=== PATIENT | female | born 1965 | race Caucasian/White ===

== ENCOUNTER 2016-06-19 08:54 | Emergency (ER) | payer OTHER ==
[2016-06-19] MEDS ORDERED: SODIUM CHLORIDE 0.9% 1,000 ML IV ONE (09:09)
[2016-06-19] MEDS ORDERED: ONDANSETRON 4 MG/2 ML VIAL IVP STA (09:10)
--- NOTE | 2016-06-19 09:21 | ED ---
General Adult HPI - General Chief complaint: Fever Stated complaint: Fever/cough Time Seen by Provider: 06/19/16 09:03 Source: patient, RN notes reviewed Mode of arrival: ambulatory Limitations: no limitations - History of Present Illness Initial comments: Patient is a 51-year-old female presents to the emergency room for evaluation of not feeling well. Patient states over the past weekend she's been having on and off fevers, slight sinus congestion, cough. Patient states over the past weekend she has been having all over body aches and has had stomach queasiness and has not had an appetite. Patient states she hasn't eaten or drink anything in the past few days and feels like she is dehydrated. Patient denies any current fevers. Patient denies headache or dizziness. Patient denies throat pain or ear pain. Patient denies abdominal pain. Patient states she has a history of colon cancer and had a colostomy bag placed in 2011. Patient states she's noticed decreased output in her colostomy bag due to not eating. Patient denies chest pain or shortness of breath. Patient states she did not receive her influenza vaccine this year. - Related Data Home Medications Medication Instructions Recorded Confirmed Empagliflozin [Jardiance] 25 mg PO DAILY 06/19/16 06/19/16 Insulin Aspart [NovoLOG] See Protocol SQ TID 06/19/16 06/19/16 Insulin Glargine [Lantus] 50 unit SQ HS 06/19/16 06/19/16 Simvastatin [Zocor] 10 mg PO HS 06/19/16 06/19/16 Previous Rx's Medication Instructions Recorded Ondansetron Odt [Zofran Odt] 4 mg PO Q8HR PRN #12 tab 06/19/16 Allergies Allergy/AdvReac Type Severity Reaction Status Date / Time adhesive tape Allergy Rash/Hives Verified 06/19/16 09:49 amoxicillin Allergy Rash/Hives Verified 06/19/16 09:49 Review of Systems ROS Statement: Those systems with pertinent positive or pertinent negative responses have been documented in the HPI. ROS Other: All systems not noted in ROS Statement are negative. Past Medical History Past Medical History: Cancer, Diabetes Mellitus Additional Past Medical History / Comment(s): colorectal CA History of Any Multi-Drug Resistant Organisms: MRSA Date of last positivie culture/infection: 2011 MDRO Source:: abdominal wound Past Surgical History: Bowel Resection Additional Past Surgical History / Comment(s): colostomy Past Psychological History: No Psychological Hx Reported Smoking Status: Never smoker Past Alcohol Use History: None Reported Past Drug Use History: None Reported General Exam - General Exam Comments Initial Comments: Sitting in exam room, no acute distress. Limitations: no limitations General appearance: alert, in no apparent distress Head exam: Present: atraumatic, normocephalic, normal inspection Eye exam: Present: normal appearance ENT exam: Present: normal exam Neck exam: Present: normal inspection Respiratory exam: Present: normal lung sounds bilaterally. Absent: respiratory distress Cardiovascular Exam: Present: regular rate, normal rhythm, normal heart sounds GI/Abdominal exam: Present: soft, other (Colostomy bag in place). Absent: distended, tenderness, guarding, rebound, rigid Extremities exam: Present: normal inspection Back exam: Present: normal inspection Neurological exam: Present: alert, oriented X3, CN II-XII intact, normal gait Psychiatric exam: Present: normal affect, normal mood Skin exam: Present: warm, dry, intact, normal color. Absent: rash Course Vital Signs 06/19/16 08:57 Temperature 97.9 F Pulse Rate 125 H Respiratory 16 Rate Blood Pressure 149/71 O2 Sat by Pulse 95 Oximetry Medical Decision Making - Medical Decision Making Patient is a 51-year-old female presents to the emergency room for evaluation upper respiratory symptoms and general malaise. CBC within normal limits. Labs show no acute findings. Patient states she is feeling better after Zofran and fluids given. Rapid influenza negative. Patient declined any further workup including chest x-ray. Patient states she is feeling better and would like to be discharged home. Patient states she'll return for any worsening symptoms. Patient states she understands everything that was discussed with her. Case discussed with Dr. Pro. - Lab Data Result diagrams: 06/19/16 09:30 06/19/16 09:30 Lab Results 06/19/16 06/19/16 06/19/16 Range/Units 09:30 09:30 09:30 WBC 5.8 (3.8-10.6) k/uL RBC 5.21 (3.80-5.40) m/uL Hgb 15.3 (11.4-16.0) gm/dL Hct 45.2 (34.0-46.0) % MCV 86.8 (80.0-100.0) fL MCH 29.4 (25.0-35.0) pg MCHC 33.9 (31.0-37.0) g/dL RDW 14.4 (11.5-15.5) % Plt Count 153 (150-450) k/uL Neutrophils % 85 % Lymphocytes % 7 % Monocytes % 5 % Eosinophils % 1 % Basophils % 1 % Neutrophils # 4.9 (1.3-7.7) k/uL Lymphocytes # 0.4 L (1.0-4.8) k/uL Monocytes # 0.3 (0-1.0) k/uL Eosinophils # 0.1 (0-0.7) k/uL Basophils # 0.0 (0-0.2) k/uL Poikilocytosis Slight Sodium 141 (137-145) mmol/L Potassium 4.2 (3.5-5.1) mmol/L Chloride 103 (98-107) mmol/L Carbon Dioxide 23 (22-30) mmol/L Anion Gap 15 mmol/L BUN 13 (7-17) mg/dL Creatinine 0.64 (0.52-1.04) mg/dL Est GFR (MDRD) Af Amer >60 (>60 ml/min/1.73 sqM) Est GFR (MDRD) Non-Af >60 (>60 ml/min/1.73 sqM) Glucose 200 H (74-99) mg/dL Calcium 9.2 (8.4-10.2) mg/dL Total Bilirubin 1.3 (0.2-1.3) mg/dL AST 23 (14-36) U/L ALT 29 (9-52) U/L Alkaline Phosphatase 60 (38-126) U/L Total Protein 7.1 (6.3-8.2) g/dL Albumin 4.3 (3.5-5.0) g/dL Influenza Type A RNA Not Detected (Not Detectd) Influenza Type B (PCR) Not Detected (Not Detectd) Disposition Clinical Impression: Upper respiratory infection Disposition: HOME SELF-CARE Condition: Good Instructions: Upper Respiratory Infection (ED) Additional Instructions: Drink plenty of fluids. Please follow up with primary care provider in 1-2 days. If any new symptom arises or symptoms worsen, return to ER as soon as possible. Prescriptions: Ondansetron Odt [Zofran Odt] 4 mg PO Q8HR PRN #12 tab PRN Reason: Nausea Referrals: John Wells MD [Primary Care Provider] - 1-2 days Time of Disposition: 10:57
[2016-06-19 09:59] LABS: Basophils % (A) 1 %; CH 30.2; Eosinophils # (A) 0.1 k/uL (0-0.7); Eosinophils % (A) 1 %; HCT 45.2 % (34.0-46.0); HDW 3.52; HGB 15.3 gm/dL (11.4-16.0); Luc % (Auto) 2; Lymphocytes # (A) 0.4 k/uL (1.0-4.8); Lymphocytes % (A) 7 %; MCH 29.4 pg (25.0-35.0); MCHC 33.9 g/dL (31.0-37.0); MCV 86.8 fL (80.0-100.0); Mean Platelet Volume 6.6; Monocytes # (A) 0.3 k/uL (0-1.0); Monocytes % (A) 5 %; Neutrophils # (A) 4.9 k/uL (1.3-7.7); Neutrophils % (A) 85 %; Poikilocytosis Slight; RBC 5.21 m/uL (3.80-5.40); RDW 14.4 % (11.5-15.5); WBC 5.8 k/uL (3.8-10.6); WBC (Perox) 5.69
[2016-06-19 10:13] LABS: ALT 29 U/L (9-52); AST 23 U/L (14-36); Alkaline Phosphatase 60 U/L (38-126); Anion Gap 15 mmol/L; Blood Urea Nitrogen 13 mg/dL (7-17); Calcium 9.2 mg/dL (8.4-10.2); Carbon Dioxide 23 mmol/L (22-30); Chloride 103 mmol/L (98-107); Glucose 200 mg/dL (74-99); Non-African American GFR(MDRD) >60 (>60 ml/min/1.73 sqM); Potassium 4.2 mmol/L (3.5-5.1); Sodium 141 mmol/L (137-145); Total Bilirubin 1.3 mg/dL (0.2-1.3); Total Protein 7.1 g/dL (6.3-8.2)
--- NOTE | 2016-06-19 11:20 | XR ---
EXAMINATION TYPE: XR chest 2V DATE OF EXAM: 06/19/2016 11:17 AM HISTORY: Pain. REFERENCE: NONE. FINDINGS: There is a questionable small infiltrate in the right middle lobe. The lungs are otherwise clear. Pleural spaces are clear. Heart size is normal. IMPRESSION: QUESTIONABLE EARLY INFILTRATE, RIGHT MIDDLE LOBE.
[2016-06-19] MEDS ORDERED: IPRATROPIUM-ALBUTEROL 3 ML NEB INHALATION STA (12:14)
[2016-06-19 12:34] VITALS: RESP 18
--- NOTE | 2016-06-19 12:35 | ED ---
Medical Decision Making - Medical Decision Making Patient is a 51-year-old female presents emergency room for reevaluation upper respiratory symptoms. Patient O2 sat low at discharge. Patient decided to go through chest x-ray and d-dimer was ordered. Chest x-ray show signs of possible right pneumonia. D-dimer negative. Patient given a DuoNeb treatment and states that she is feeling better. O2 sat 99%. Patient given 1 g of Rocephin while she was here. Will discharge patient with antibiotics to treat for pneumonia and advised to follow-up with her primary care provider. Patient states she understands everything that was discussed with her. Return parameters discussed. Case discussed with Dr. Pro. - Lab Data Result diagrams: 06/19/16 09:30 06/19/16 09:30 Lab Results 06/19/16 06/19/16 06/19/16 Range/Units 09:30 09:30 09:30 WBC 5.8 (3.8-10.6) k/uL RBC 5.21 (3.80-5.40) m/uL Hgb 15.3 (11.4-16.0) gm/dL Hct 45.2 (34.0-46.0) % MCV 86.8 (80.0-100.0) fL MCH 29.4 (25.0-35.0) pg MCHC 33.9 (31.0-37.0) g/dL RDW 14.4 (11.5-15.5) % Plt Count 153 (150-450) k/uL Neutrophils % 85 % Lymphocytes % 7 % Monocytes % 5 % Eosinophils % 1 % Basophils % 1 % Neutrophils # 4.9 (1.3-7.7) k/uL Lymphocytes # 0.4 L (1.0-4.8) k/uL Monocytes # 0.3 (0-1.0) k/uL Eosinophils # 0.1 (0-0.7) k/uL Basophils # 0.0 (0-0.2) k/uL Poikilocytosis Slight D-Dimer (<0.60) mg/L FEU Sodium 141 (137-145) mmol/L Potassium 4.2 (3.5-5.1) mmol/L Chloride 103 (98-107) mmol/L Carbon Dioxide 23 (22-30) mmol/L Anion Gap 15 mmol/L BUN 13 (7-17) mg/dL Creatinine 0.64 (0.52-1.04) mg/dL Est GFR (MDRD) Af Amer >60 (>60 ml/min/1.73 sqM) Est GFR (MDRD) Non-Af >60 (>60 ml/min/1.73 sqM) Glucose 200 H (74-99) mg/dL Calcium 9.2 (8.4-10.2) mg/dL Total Bilirubin 1.3 (0.2-1.3) mg/dL AST 23 (14-36) U/L ALT 29 (9-52) U/L Alkaline Phosphatase 60 (38-126) U/L Total Protein 7.1 (6.3-8.2) g/dL Albumin 4.3 (3.5-5.0) g/dL Influenza Type A RNA Not Detected (Not Detectd) Influenza Type B (PCR) Not Detected (Not Detectd) 06/19/16 Range/Units 11:30 WBC (3.8-10.6) k/uL RBC (3.80-5.40) m/uL Hgb (11.4-16.0) gm/dL Hct (34.0-46.0) % MCV (80.0-100.0) fL MCH (25.0-35.0) pg MCHC (31.0-37.0) g/dL RDW (11.5-15.5) % Plt Count (150-450) k/uL Neutrophils % % Lymphocytes % % Monocytes % % Eosinophils % % Basophils % % Neutrophils # (1.3-7.7) k/uL Lymphocytes # (1.0-4.8) k/uL Monocytes # (0-1.0) k/uL Eosinophils # (0-0.7) k/uL Basophils # (0-0.2) k/uL Poikilocytosis D-Dimer 0.46 (<0.60) mg/L FEU Sodium (137-145) mmol/L Potassium (3.5-5.1) mmol/L Chloride (98-107) mmol/L Carbon Dioxide (22-30) mmol/L Anion Gap mmol/L BUN (7-17) mg/dL Creatinine (0.52-1.04) mg/dL Est GFR (MDRD) Af Amer (>60 ml/min/1.73 sqM) Est GFR (MDRD) Non-Af (>60 ml/min/1.73 sqM) Glucose (74-99) mg/dL Calcium (8.4-10.2) mg/dL Total Bilirubin (0.2-1.3) mg/dL AST (14-36) U/L ALT (9-52) U/L Alkaline Phosphatase (38-126) U/L Total Protein (6.3-8.2) g/dL Albumin (3.5-5.0) g/dL Influenza Type A RNA (Not Detectd) Influenza Type B (PCR) (Not Detectd) - Radiology Data Radiology results: report reviewed, image reviewed Disposition Clinical Impression: Pneumonia Disposition: HOME SELF-CARE Condition: Good Instructions: Pneumonia (ED) Additional Instructions: Drink plenty of fluids. Please follow up with primary care provider in 1-2 days. If any new symptom arises or symptoms worsen, return to ER as soon as possible. Prescriptions: Albuterol Inhaler [Ventolin Hfa Inhaler] 1 - 2 puff INHALATION Q6HR PRN #1 inhaler PRN Reason: Cough Ondansetron Odt [Zofran Odt] 4 mg PO Q8HR PRN #12 tab PRN Reason: Nausea Levofloxacin [Levaquin] 500 mg PO DAILY 7 Days predniSONE 40 mg PO DIRECTED 3 Days Referrals: John Wells MD [Primary Care Provider] - 1-2 days Time of Disposition: 13:28
[2016-06-19 13:52] VITALS: BP 137/67; PULSE 113; TEMP 99.2
== END 2016-06-19 13:50 | disposition home or self-care (01) ==
LOC: EC 08:54
DX: J18.9 Pneumonia, unspecified organism (principal); J06.9 Acute upper respiratory infection, unspecified; E11.9 Type 2 diabetes mellitus without complications; Z91.048 Other nonmedicinal substance allergy status; Z79.4 Long term (current) use of insulin; Z85.038 Personal history of other malignant neoplasm of large intestine; Z85.048 Personal history of other malignant neoplasm of rectum, rectosigmoid junction, and anus; Z88.0 Allergy status to penicillin; Z79.899 Other long term (current) drug therapy
CPT/HCPCS: 99284 ×2; 96365; 96375; 96361 ×3; 36415; 94640; 85379; 80053; 85025; 87502; 71020; J2405; J0696; 99283

== ENCOUNTER → 2017-03-20 | Outpatient (CLI) | payer OTHER ==
--- NOTE | 2017-03-22 11:27 | MM ---
Reason for exam: screening (asymptomatic). Last mammogram was performed 1 year and 1 month ago. History: Patient is postmenopausal, has history of colon cancer at age 47, history of other cancer, and is nulliparous. Physical Findings: A clinical breast exam by your physician is recommended on an annual basis and results should be correlated with mammographic findings. MG Screening Mammo w CAD Bilateral CC and MLO view(s) were taken. Prior study comparison: February 28, 2016, bilateral MG screening mammo w CAD. February 25, 2015, bilateral MG screening mammo w CAD. The breast tissue is almost entirely fat. No significant changes when compared with prior studies. ASSESSMENT: Negative, BI-RAD 1 RECOMMENDATION: Routine screening mammogram of both breasts in 1 year.
== END | disposition home or self-care (01) ==
LOC: RADMAMWWP 06:47
PROVIDERS: ATTEND Obstetrics & Gynecology
DX: Z12.31 Encounter for screening mammogram for malignant neoplasm of breast (principal)

== ENCOUNTER 2017-08-29 21:38 | Inpatient (IN) | payer OTHER ==
[2017-08-29] MEDS ORDERED: ACETAMINOPHEN TAB 500 MG TAB PO STA (22:14)
[2017-08-29] MEDS ORDERED: SODIUM CHLORIDE 0.9% 2,000 ML IV ONE (22:19)
[2017-08-29] MEDS ORDERED: ONDANSETRON 4 MG/2 ML VIAL IVP STA (22:20)
[2017-08-29 22:26] LABS: Glucose,Whole Blood 157 mg/dL (75-99)
[2017-08-29 22:29] LABS: Basophils % (A) 0 %; Eosinophils # (A) 0.2 k/uL (0-0.7); Eosinophils % (A) 2 %; HCT 51.8 % (34.0-46.0); HGB 17.6 gm/dL (11.4-16.0); Lymphocytes % (A) 7 %; MCH 29.9 pg (25.0-35.0); MCHC 33.9 g/dL (31.0-37.0); MCV 88.2 fL (80.0-100.0); Mean Platelet Volume 6.5; Monocytes # (A) 0.4 k/uL (0-1.0); Monocytes % (A) 3 %; Neutrophils # (A) 11.2 k/uL (1.3-7.7); Neutrophils % (A) 87 %; Platelet Count 286 k/uL (150-450); Poikilocytosis Slight; RBC 5.87 m/uL (3.80-5.40); RDW 14.7 % (11.5-15.5); WBC 12.9 k/uL (3.8-10.6)
[2017-08-29] MEDS: SODIUM CHLORIDE 0.9% 1,000 ML IV SCH (22:37)
[2017-08-29 22:43] LABS: ALT 37 U/L (9-52); AST 25 U/L (14-36); Albumin 5.4 g/dL (3.5-5.0); Alkaline Phosphatase 66 U/L (38-126); Amylase 52 U/L (30-110); Anion Gap 30 mmol/L; Blood Urea Nitrogen 15 mg/dL (7-17); Calcium 10.5 mg/dL (8.4-10.2); Chloride 105 mmol/L (98-107); Glucose 165 mg/dL (74-99); Lipase 191 U/L (23-300); Potassium 4.5 mmol/L (3.5-5.1); Sodium 141 mmol/L (137-145); Total Bilirubin 0.7 mg/dL (0.2-1.3); Total Protein 8.1 g/dL (6.3-8.2)
[2017-08-29 22:50] LABS: Carbon Dioxide 6 mmol/L (22-30)
--- NOTE | 2017-08-29 22:54 | XR ---
EXAMINATION TYPE: XR chest 2V DATE OF EXAM: 08/29/2017 COMPARISON: 06/19/2016 HISTORY: Headache TECHNIQUE: Frontal and lateral views of the chest are obtained. FINDINGS: Heart and mediastinum are normal. Lungs are clear. Diaphragm is normal. Bony thorax is int act. There are chest leads. IMPRESSION: Normal chest. There is clearing of some infiltrate in the right lower lobe compared to o ld exam.
--- NOTE | 2017-08-29 22:55 | XR ---
EXAMINATION TYPE: XR KUB DATE OF EXAM: 08/29/2017 COMPARISON: NONE HISTORY: Nausea. Pain. TECHNIQUE: 2 views FINDINGS: There is no sign of intestinal obstruction or pneumoperitoneum. Fecal pattern is normal. Ba riatric surgery catheter is noted. There is no evidence of a mass. There is some small calcifications over the left kidney. IMPRESSION: Nonacute abdomen. Tiny calcifications over the left upper quadrant of uncertain significa nce.
[2017-08-29 22:59] LABS: VBG PH 7.13 (7.31-7.41)
--- NOTE | 2017-08-29 23:20 | ED ---
Arrhythmia/Palpitations HPI - General Chief Complaint: Arrhythmia/Palpitations Stated Complaint: Palpatations Time Seen by Provider: 08/29/17 22:12 Source: patient Mode of arrival: ambulatory Limitations: no limitations - History of Present Illness Initial Comments: 20 years O female comes in with a palpitation, she is a diabetic, she dropped her sugar too low that she stopped taking her insulin but she hasn't taken her insulin for a few days and she is very tired as well as headache she is abdominal pain she is nauseous she threw up twice and she feels very very thirsty. She denies any neck stiffness no chest pain as such no pleuritic chest pain abdomen has diffuse tenderness, no signs of any TIA or CVA - Related Data Home Medications Medication Instructions Recorded Confirmed Insulin Aspart [NovoLOG] See Protocol SQ TID 06/19/16 08/29/17 Simvastatin [Zocor] 10 mg PO HS 06/19/16 08/29/17 Albuterol Inhaler [Ventolin Hfa 1 - 2 puff INHALATION RT-Q6H PRN 08/29/17 Inhaler] Canagliflozin [Invokana] 100 mg PO DAILY 08/29/17 08/29/17 Insulin Detemir [Levemir] 50 unit SQ HS 08/29/17 08/29/17 Lisinopril [Zestril] 2.5 mg PO DAILY 08/29/17 08/29/17 Allergies Allergy/AdvReac Type Severity Reaction Status Date / Time adhesive tape Allergy Rash/Hives Verified 08/29/17 22:23 amoxicillin Allergy Rash/Hives Verified 08/29/17 22:23 Review of Systems ROS Statement: Those systems with pertinent positive or pertinent negative responses have been documented in the HPI. ROS Other: All systems not noted in ROS Statement are negative. Past Medical History Past Medical History: Cancer, Diabetes Mellitus Additional Past Medical History / Comment(s): colorectal CA History of Any Multi-Drug Resistant Organisms: MRSA Date of last positivie culture/infection: 2011 MDRO Source:: abdominal wound Past Surgical History: Bowel Resection Additional Past Surgical History / Comment(s): colostomy Past Psychological History: No Psychological Hx Reported Smoking Status: Never smoker Past Alcohol Use History: None Reported Past Drug Use History: None Reported General Exam Limitations: no limitations Course Vital Signs 08/29/17 08/30/17 21:54 01:10 Temperature 97.9 F Pulse Rate 110 H 106 H Respiratory 20 18 Rate Blood Pressure 134/84 137/64 O2 Sat by Pulse 95 98 Oximetry EKG Findings - EKG Comments: EKG Findings:: EKG is sinus tachycardia ventricular rate is 1 of 4 TX interval is 158 QRS QRS duration is 88 QT/QTc is 364/478 and noticed T-wave inversion in lead [address] elevation or ST depression noticed Medical Decision Making - Lab Data Result diagrams: 08/29/17 22:15 08/29/17 22:15 Lab Results 08/29/17 08/29/17 08/29/17 Range/Units 22:15 22:15 22:15 WBC 12.9 H (3.8-10.6) k/uL RBC 5.87 H (3.80-5.40) m/uL Hgb 17.6 H (11.4-16.0) gm/dL Hct 51.8 H (34.0-46.0) % MCV 88.2 (80.0-100.0) fL MCH 29.9 (25.0-35.0) pg MCHC 33.9 (31.0-37.0) g/dL RDW 14.7 (11.5-15.5) % Plt Count 286 (150-450) k/uL Neutrophils % 87 % Lymphocytes % 7 % Monocytes % 3 % Eosinophils % 2 % Basophils % 0 % Neutrophils # 11.2 H (1.3-7.7) k/uL Lymphocytes # 1.0 (1.0-4.8) k/uL Monocytes # 0.4 (0-1.0) k/uL Eosinophils # 0.2 (0-0.7) k/uL Basophils # 0.0 (0-0.2) k/uL Poikilocytosis Slight VBG pH (7.31-7.41) VBG pCO2 (37-51) mmHg VBG HCO3 (24-28) mmol/L Sodium 141 (137-145) mmol/L Potassium 4.5 (3.5-5.1) mmol/L Chloride 105 (98-107) mmol/L Carbon Dioxide 6 L* (22-30) mmol/L Anion Gap 30 mmol/L BUN 15 (7-17) mg/dL Creatinine 0.80 (0.52-1.04) mg/dL Est GFR (CKD-EPI)AfAm >90 (>60 ml/min/1.73 sqM) Est GFR (CKD-EPI)NonAf 85 (>60 ml/min/1.73 sqM) Glucose 165 H (74-99) mg/dL POC Glucose (mg/dL) (75-99) mg/dL POC Glu General Manager [employer] ID Plasma Lactic Acid Mamadou (0.7-2.0) mmol/L Calcium 10.5 H (8.4-10.2) mg/dL Total Bilirubin 0.7 (0.2-1.3) mg/dL AST 25 (14-36) U/L ALT 37 (9-52) U/L Alkaline Phosphatase 66 (38-126) U/L Troponin I <0.012 (0.000-0.034) ng/mL Total Protein 8.1 (6.3-8.2) g/dL Albumin 5.4 H (3.5-5.0) g/dL Amylase 52 (30-110) U/L Lipase 191 (23-300) U/L Urine Color Urine Appearance (Clear) Urine pH (5.0-8.0) Ur Specific [place] (1.001-1.035) Urine Protein (Negative) Urine Glucose (UA) (Negative) Urine Ketones (Negative) Urine Blood (Negative) Urine Nitrite (Negative) Urine Bilirubin (Negative) Urine Urobilinogen (<2.0) mg/dL Ur Leukocyte Esterase (Negative) Urine RBC (0-5) /hpf Urine WBC (0-5) /hpf Ur Squamous Epith Cells (0-4) /hpf Urine Mucus (None) /hpf Urine Opiates Screen (NotDetected) Ur Oxycodone Screen (NotDetected) Urine Methadone Screen (NotDetected) Ur Propoxyphene Screen (NotDetected) Ur Barbiturates Screen (NotDetected) U Tricyclic Antidepress (NotDetected) Ur Phencyclidine Scrn (NotDetected) Ur Amphetamines Screen (NotDetected) U Methamphetamines Scrn (NotDetected) U Benzodiazepines Scrn (NotDetected) Urine Cocaine Screen (NotDetected) U Marijuana (THC) Screen (NotDetected) 08/29/17 08/29/17 08/29/17 Range/Units 22:22 22:35 22:35 WBC (3.8-10.6) k/uL RBC (3.80-5.40) m/uL Hgb (11.4-16.0) gm/dL Hct (34.0-46.0) % MCV (80.0-100.0) fL MCH (25.0-35.0) pg MCHC (31.0-37.0) g/dL RDW (11.5-15.5) % Plt Count (150-450) k/uL Neutrophils % % Lymphocytes % % Monocytes % % Eosinophils % % Basophils % % Neutrophils # (1.3-7.7) k/uL Lymphocytes # (1.0-4.8) k/uL Monocytes # (0-1.0) k/uL Eosinophils # (0-0.7) k/uL Basophils # (0-0.2) k/uL Poikilocytosis VBG pH 7.13 L* (7.31-7.41) VBG pCO2 18 L* (37-51) mmHg VBG HCO3 6 L* (24-28) mmol/L Sodium (137-145) mmol/L Potassium (3.5-5.1) mmol/L Chloride (98-107) mmol/L Carbon Dioxide (22-30) mmol/L Anion Gap mmol/L BUN (7-17) mg/dL Creatinine (0.52-1.04) mg/dL Est GFR (CKD-EPI)AfAm (>60 ml/min/1.73 sqM) Est GFR (CKD-EPI)NonAf (>60 ml/min/1.73 sqM) Glucose (74-99) mg/dL POC Glucose (mg/dL) 157 H (75-99) mg/dL POC Glu [facility] [employer] [facility] Plasma Lactic Acid Mamadou 0.9 (0.7-2.0) mmol/L Calcium (8.4-10.2) mg/dL Total Bilirubin (0.2-1.3) mg/dL AST (14-36) U/L ALT (9-52) U/L Alkaline Phosphatase (38-126) U/L Troponin I (0.000-0.034) ng/mL Total Protein (6.3-8.2) g/dL Albumin (3.5-5.0) g/dL Amylase (30-110) U/L Lipase (23-300) U/L Urine Color Urine Appearance (Clear) Urine pH (5.0-8.0) Ur Specific [place] (1.001-1.035) Urine Protein (Negative) Urine Glucose (UA) (Negative) Urine Ketones (Negative) Urine Blood (Negative) Urine Nitrite (Negative) Urine Bilirubin (Negative) Urine Urobilinogen (<2.0) mg/dL Ur Leukocyte Esterase (Negative) Urine RBC (0-5) /hpf Urine WBC (0-5) /hpf Ur Squamous Epith Cells (0-4) /hpf Urine Mucus (None) /hpf Urine Opiates Screen (NotDetected) Ur Oxycodone Screen (NotDetected) Urine Methadone Screen (NotDetected) Ur Propoxyphene Screen (NotDetected) Ur Barbiturates Screen (NotDetected) U Tricyclic Antidepress (NotDetected) Ur Phencyclidine Scrn (NotDetected) Ur Amphetamines Screen (NotDetected) U Methamphetamines Scrn (NotDetected) U Benzodiazepines Scrn (NotDetected) Urine Cocaine Screen (NotDetected) U Marijuana (THC) Screen (NotDetected) 08/29/17 08/29/17 08/29/17 Range/Units 23:23 23:23 23:42 WBC (3.8-10.6) k/uL RBC (3.80-5.40) m/uL Hgb (11.4-16.0) gm/dL Hct (34.0-46.0) % MCV (80.0-100.0) fL MCH (25.0-35.0) pg MCHC (31.0-37.0) g/dL RDW (11.5-15.5) % Plt Count (150-450) k/uL Neutrophils % % Lymphocytes % % Monocytes % % Eosinophils % % Basophils % % Neutrophils # (1.3-7.7) k/uL Lymphocytes # (1.0-4.8) k/uL Monocytes # (0-1.0) k/uL Eosinophils # (0-0.7) k/uL Basophils # (0-0.2) k/uL Poikilocytosis VBG pH (7.31-7.41) VBG pCO2 (37-51) mmHg VBG HCO3 (24-28) mmol/L Sodium (137-145) mmol/L Potassium (3.5-5.1) mmol/L Chloride (98-107) mmol/L Carbon Dioxide (22-30) mmol/L Anion Gap mmol/L BUN (7-17) mg/dL Creatinine (0.52-1.04) mg/dL Est GFR (CKD-EPI)AfAm (>60 ml/min/1.73 sqM) Est GFR (CKD-EPI)NonAf (>60 ml/min/1.73 sqM) Glucose (74-99) mg/dL POC Glucose (mg/dL) (75-99) mg/dL POC Glu General Manager [employer] ID Plasma Lactic Acid Mamadou 0.9 (0.7-2.0) mmol/L Calcium (8.4-10.2) mg/dL Total Bilirubin (0.2-1.3) mg/dL AST (14-36) U/L ALT (9-52) U/L Alkaline Phosphatase (38-126) U/L Troponin I (0.000-0.034) ng/mL Total Protein (6.3-8.2) g/dL Albumin (3.5-5.0) g/dL Amylase (30-110) U/L Lipase (23-300) U/L Urine Color Light Yellow Urine Appearance Clear (Clear) Urine pH 5.0 (5.0-8.0) Ur Specific [place] 1.015 (1.001-1.035) Urine Protein 1+ H (Negative) Urine Glucose (UA) 4+ H (Negative) Urine Ketones 4+ H (Negative) Urine Blood Trace H (Negative) Urine Nitrite Negative (Negative) Urine Bilirubin Negative (Negative) Urine Urobilinogen <2.0 (<2.0) mg/dL Ur Leukocyte Esterase Negative (Negative) Urine RBC <1 (0-5) /hpf Urine WBC <1 (0-5) /hpf Ur Squamous Epith Cells <1 (0-4) /hpf Urine Mucus Rare H (None) /hpf Urine Opiates Screen Not Detected (NotDetected) Ur Oxycodone Screen Not Detected (NotDetected) Urine Methadone Screen Not Detected (NotDetected) Ur Propoxyphene Screen Not Detected (NotDetected) Ur Barbiturates Screen Not Detected (NotDetected) U Tricyclic Antidepress Not Detected (NotDetected) Ur Phencyclidine Scrn Not Detected (NotDetected) Ur Amphetamines Screen Not Detected (NotDetected) U Methamphetamines Scrn Not Detected (NotDetected) U Benzodiazepines Scrn Not Detected (NotDetected) Urine Cocaine Screen Not Detected (NotDetected) U Marijuana (THC) Screen Not Detected (NotDetected) 08/29/17 Range/Units 23:42 WBC (3.8-10.6) k/uL RBC (3.80-5.40) m/uL Hgb (11.4-16.0) gm/dL Hct (34.0-46.0) % MCV (80.0-100.0) fL MCH (25.0-35.0) pg MCHC (31.0-37.0) g/dL RDW (11.5-15.5) % Plt Count (150-450) k/uL Neutrophils % % Lymphocytes % % Monocytes % % Eosinophils % % Basophils % % Neutrophils # (1.3-7.7) k/uL Lymphocytes # (1.0-4.8) k/uL Monocytes # (0-1.0) k/uL Eosinophils # (0-0.7) k/uL Basophils # (0-0.2) k/uL Poikilocytosis VBG pH 7.04 L* (7.31-7.41) VBG pCO2 25 L (37-51) mmHg VBG HCO3 7 L* (24-28) mmol/L Sodium (137-145) mmol/L Potassium (3.5-5.1) mmol/L Chloride (98-107) mmol/L Carbon Dioxide (22-30) mmol/L Anion Gap mmol/L BUN (7-17) mg/dL Creatinine (0.52-1.04) mg/dL Est GFR (CKD-EPI)AfAm (>60 ml/min/1.73 sqM) Est GFR (CKD-EPI)NonAf (>60 ml/min/1.73 sqM) Glucose (74-99) mg/dL POC Glucose (mg/dL) (75-99) mg/dL POC Glu General Manager [employer] ID Plasma Lactic Acid Mamadou (0.7-2.0) mmol/L Calcium (8.4-10.2) mg/dL Total Bilirubin (0.2-1.3) mg/dL AST (14-36) U/L ALT (9-52) U/L Alkaline Phosphatase (38-126) U/L Troponin I (0.000-0.034) ng/mL Total Protein (6.3-8.2) g/dL Albumin (3.5-5.0) g/dL Amylase (30-110) U/L Lipase (23-300) U/L Urine Color Urine Appearance (Clear) Urine pH (5.0-8.0) Ur Specific [place] (1.001-1.035) Urine Protein (Negative) Urine Glucose (UA) (Negative) Urine Ketones (Negative) Urine Blood (Negative) Urine Nitrite (Negative) Urine Bilirubin (Negative) Urine Urobilinogen (<2.0) mg/dL Ur Leukocyte Esterase (Negative) Urine RBC (0-5) /hpf Urine WBC (0-5) /hpf Ur Squamous Epith Cells (0-4) /hpf Urine Mucus (None) /hpf Urine Opiates Screen (NotDetected) Ur Oxycodone Screen (NotDetected) Urine Methadone Screen (NotDetected) Ur Propoxyphene Screen (NotDetected) Ur Barbiturates Screen (NotDetected) U Tricyclic Antidepress (NotDetected) Ur Phencyclidine Scrn (NotDetected) Ur Amphetamines Screen (NotDetected) U Methamphetamines Scrn (NotDetected) U Benzodiazepines Scrn (NotDetected) Urine Cocaine Screen (NotDetected) U Marijuana (THC) Screen (NotDetected) Critical Care Time Total Critical Care Time: 60 Critical Care Time: She presented with the profound weakness, dizzy, palpitations, tachycardia, nausea and abdominal pain she had stopped taken her insulin few days prior to arrival and reassessment noticed white count was 13, pH was 7.1 pCO2 was very low and bicarb was only 6 glucose was 165 though I expected HER glucose at that point and discussed that with the Dr. Susan Spangler he was concerned about lactic acidosis and numb he advised to repeat the blood gases repeat blood gases after 2 L of fluids were not whole lot better patient needs to go to the ICU at that point to we discussed that with the Dr. Lily Bautista with the admitting doctor Dr. Peoples advised him insulin infusion with D5 W the 20 bicarb 125 miles per hour and repeat labs according to the protocol insulin infusion has been started Disposition Clinical Impression: Metabolic acidosis, Respiratory acidosis, Diabetic ketoacidosis Disposition: ADMITTED IP TO THIS HOSP Condition: Fair Referrals: John Wells MD [Primary Care Provider] - 1-2 days
[2017-08-29 23:45] LABS: Appearance,Urine Clear (Clear); Bilirubin,Urine Negative (Negative); Blood,Urine Trace (Negative); Color,Urine Light Yellow; Glucose,Urine (UA) 4+ (Negative); Leukocyte Esterase,Urine Negative (Negative); Mucus,Urine Rare /hpf; Nitrite,Urine Negative (Negative); Protein,Urine 1+ (Negative); RBC,Urine <1 /hpf (0-5); Specific Gravity,Urine 1.015 (1.001-1.035); Squamous Epithelial Cell,Urine <1 /hpf (0-4); Urobilinogen,Urine <2.0 mg/dL (<2.0); WBC,Urine <1 /hpf (0-5)
[2017-08-29 23:55] LABS: Ketones,Urine 4+ (Negative)
[2017-08-29 23:59] LABS: VBG PH 7.04 (7.31-7.41)
[2017-08-30] MEDS ORDERED: SODIUM CHLORIDE 0.9% 2,000 ML IV ONE (00:20)
[2017-08-30 00:45] LABS: Amphetamine Screen,Urine Not Detected (NotDetected); Barbiturate Screen,Urine Not Detected (NotDetected); Benzodiazepines Screen,Urine Not Detected (NotDetected); Cocaine Screen,Urine Not Detected (NotDetected); Methadone Screen, Urine Not Detected (NotDetected); Opiate Screen,Urine Not Detected (NotDetected); Oxycodone Screen, Urine Not Detected (NotDetected); Phencyclidine Screen,Urine Not Detected (NotDetected); Tricyclic Antidepressant,Urine Not Detected (NotDetected); Urn Cannabinoid Scrn Not Detected (NotDetected)
[2017-08-30] MEDS ORDERED: Potassium Replacement Protocol 1 EACH MISC MISCELLANE PRN (01:33)
[2017-08-30] MEDS ORDERED: Magnesium Replacement Protocol 1 EACH MISC MISCELLANE PRN (01:33)
[2017-08-30] MEDS: SODIUM BICARBONATE 150 MEQ in DEXTROSE 5% IN WATER 1,000 ML IV SCH ×4 (01:37→10:24)
[2017-08-30] MEDS ORDERED: ALBUTEROL NEBULIZED 2.5 MG/3 ML INHALATION PRN (01:40)
[2017-08-30] MEDS ORDERED: INSULIN REGULAR 100 UNIT in SODIUM CHLORIDE 0.9% 100 ML IV SCH ×4 (01:45)
[2017-08-30] MEDS ORDERED: SODIUM CHLORIDE 0.9% 1,000 ML IV SCH ×2 (01:45)
[2017-08-30] MEDS ORDERED: METOCLOPRAMIDE 5 MG/ML 2 ML VIAL IVP STA (01:54)
[2017-08-30 02:00] LABS: Glucose,Whole Blood 140 mg/dL (75-99)
[2017-08-30 02:41] LABS: Glucose,Whole Blood 118 mg/dL (75-99)
[2017-08-30 03:32] LABS: Glucose,Whole Blood 95 mg/dL (75-99)
[2017-08-30 04:09] LABS: Glucose,Whole Blood 103 mg/dL (75-99)
[2017-08-30 04:26] LABS: ABG Base Excess -23.5 mmol/L; ABG PCO2 23 mmHg (35-45); ABG PO2 92 mmHg (83-108); ABG TCO2 7 mmol/L (19-24)
[2017-08-30 04:30] LABS: ABG HCO3 7 mmol/L (21-25); ABG PH 7.07 (7.35-7.45)
[2017-08-30 04:35] LABS: Blood Urea Nitrogen 14 mg/dL (7-17); Chloride 111 mmol/L (98-107); Glucose 108 mg/dL (74-99); Phosphorus 2.9 mg/dL (2.5-4.5); Potassium 4.5 mmol/L (3.5-5.1); Sodium 139 mmol/L (137-145)
[2017-08-30 04:42] LABS: Anion Gap 21 mmol/L
[2017-08-30 04:43] LABS: Carbon Dioxide 7 mmol/L (22-30)
[2017-08-30 05:01] LABS: Glucose,Whole Blood 104 mg/dL (75-99)
[2017-08-30] MEDS ORDERED: ACETAMINOPHEN TAB 325 MG TAB PO PRN (05:27)
[2017-08-30 05:48] LABS: Basophils % (A) 0 %; Eosinophils # (A) 0.1 k/uL (0-0.7); Eosinophils % (A) 0 %; HGB 14.7 gm/dL (11.4-16.0); Lymphocytes # (A) 0.6 k/uL (1.0-4.8); Lymphocytes % (A) 6 %; MCH 30.2 pg (25.0-35.0); MCHC 33.5 g/dL (31.0-37.0); MCV 90.2 fL (80.0-100.0); Mean Platelet Volume 7.1; Monocytes # (A) 0.3 k/uL (0-1.0); Monocytes % (A) 3 %; Neutrophils # (A) 9.6 k/uL (1.3-7.7); Neutrophils % (A) 90 %; Platelet Count 237 k/uL (150-450); Poikilocytosis Slight; RBC 4.88 m/uL (3.80-5.40); RDW 15.1 % (11.5-15.5); WBC 10.7 k/uL (3.8-10.6)
[2017-08-30 06:02] LABS: Glucose,Whole Blood 108 mg/dL (75-99)
[2017-08-30 06:05] VITALS: BMI 35.5
[2017-08-30 07:11] LABS: Glucose,Whole Blood 93 mg/dL (75-99)
[2017-08-30] MEDS: SODIUM CHLORIDE 0.9% 1,000 ML IV SCH (07:39)
[2017-08-30] MEDS: HEPARIN SODIUM,PORCINE 5,000 UNIT/ML 1 ML VIAL SQ SCH ×2 (08:01→16:06)
[2017-08-30] MEDS: LISINOPRIL 2.5 MG TAB PO SCH (08:01)
[2017-08-30] MEDS: PANTOPRAZOLE 40 MG/10 ML VIAL IV SCH (08:01)
[2017-08-30 08:07] LABS: Glucose,Whole Blood 115 mg/dL (75-99)
[2017-08-30] MEDS ORDERED: Canagliflozin [Invokana] 100 MG PO SCH (09:00)
[2017-08-30 09:05] LABS: Glucose,Whole Blood 126 mg/dL (75-99)
[2017-08-30 09:06] LABS: Anion Gap 21 mmol/L; Blood Urea Nitrogen 12 mg/dL (7-17); Chloride 107 mmol/L (98-107); Glucose 132 mg/dL (74-99); Phosphorus 1.9 mg/dL (2.5-4.5); Potassium 4.3 mmol/L (3.5-5.1); Sodium 136 mmol/L (137-145)
[2017-08-30 09:20] LABS: Carbon Dioxide 8 mmol/L (22-30)
[2017-08-30] MEDS ORDERED: Phosphorus Replacement Protoco 1 EACH MISC MISCELLANE PRN (09:23)
[2017-08-30 10:10] LABS: Glucose,Whole Blood 112 mg/dL (75-99)
[2017-08-30] MEDS: SODIUM PHOSPHATE 10 MMOL in SODIUM CHLORIDE 0.9% 250 ML IVPB SCH ×2 (10:24→12:00)
[2017-08-30 11:17] LABS: Glucose,Whole Blood 114 mg/dL (75-99)
[2017-08-30] MEDS: cycloSPORINE 0.05% OPHTH 0.4 ML DROPERETTE BOTH EYES SCH ×2 (11:17→21:50)
[2017-08-30 11:41] LABS: ABG Base Excess -17.7 mmol/L; ABG Oxygen Saturation 98.3 % (94-97); ABG PCO2 26 mmHg (35-45); ABG PH 7.21 (7.35-7.45); ABG PO2 98 mmHg (83-108); ABG TCO2 11 mmol/L (19-24)
[2017-08-30 11:43] LABS: ABG HCO3 10 mmol/L (21-25)
[2017-08-30] MEDS: DEXTROSE 5% IN WATER 1,000 ML IV SCH ×3 (12:00→22:18)
[2017-08-30 12:03] LABS: Glucose,Whole Blood 116 mg/dL (75-99)
[2017-08-30] MEDS: INSULIN REGULAR 100 UNIT in SODIUM CHLORIDE 0.9% 100 ML IV SCH (12:07)
[2017-08-30] MEDS ORDERED: PNEUMOCOCCAL VACC-PNEUMOVAX 23 25 MCG/0.5 ML VIAL IM ONE (12:16)
[2017-08-30] MEDS ORDERED: INSULIN ASPART 100 UNIT/ML 1 ML 10 ML VIAL SQ SCH ×4 (12:30)
--- NOTE | 2017-08-30 13:00 | P.HPIM ---
History of Present Illness H&P Date: 08/30/17 Chief Complaint: Palpitations This is a 52-year-old female patient of Dr. Wells with past medical history for diabetes mellitus type 2 insulin requiring, colorectal cancer status post resection and colostomy in 2011 with chemotherapy and radiation prior to surgery and 6 months of chemotherapy after surgery completed in November 2012, morbid obesity status post lap band surgery in 2005. Patient gives history that she eats a lot of sugar such as things like cookies cakes and ice cream and she decided to cut out all her sugars. Her blood sugar then dropped and she stopped taking insulin. On Saturday she stopped taking NovoLog and on Saturday evening she stopped taking Levemir she stop insulins because her blood sugar on Saturday evening was 40. She states she has had no food for the past 2 days. She did call her physician on Saturday was not able to get an appointment until the . She is normally on Levemir 50 units at bedtime and NovoLog 10-18 units with each meal during the day. Patient then developed headache, nausea and palpitations and when she developed palpitations, she decided she needed to come in to the hospital for evaluation. Patient was found to have a CO2 of 6, blood sugar 165, white count 12.9 and hemoglobin 17.6. Troponin was negative. Venous blood gas showed a pH of 7.13, pCO2 18 and bicarb 6. Lactic acid was 0.9. Urinalysis was clear with nitrate and leukoesterase negative. Urine drug screen was negative. Patient does deny any suicidal ideation. Her only [id number]-vibevch medication is Tylenol. She denies any intake of aspirin. Chest x-ray is normal. KUB is nonacute abdomen. Patient was admitted into intensive care unit and consult with Dr. Davis for intensive care management. Patient was started on insulin drip and dextrose with bicarbonate drip. Consult was subsequently added for Dr. Jacques for metabolic acidosis. Review of Systems All systems: negative Constitutional: Reports anorexia, Reports fatigue, Reports lethargy, Reports malaise, Reports poor appetite, Reports weakness, Denies chills, Denies fever Eyes: denies blurred vision, denies pain Ears, nose, mouth and throat: Denies dysphagia, Denies headache, Denies hoarseness, Denies mouth pain, Denies sore throat Cardiovascular: Reports palpitations, Denies chest pain, Denies decreased exercise tolerance, Denies dyspnea on exertion, Denies leg edema, Denies lightheadedness, Denies shortness of breath, Denies syncope Respiratory: Denies cough, Denies cough with sputum, Denies dyspnea, Denies excessive sputum, Denies hemoptysis, Denies home oxygen, Denies wheezing Gastrointestinal: Reports loss of appetite, Reports nausea, Reports vomiting, Denies abdominal pain, Denies diarrhea Genitourinary: Denies dysuria, Denies hematuria, Denies urgency, Denies urinary frequency Musculoskeletal: Denies myalgias Integumentary: Denies pruritus, Denies rash, Denies wounds Neurological: Denies confusion, Denies convulsions, Denies gait dysfunction, Denies numbness, Denies weakness Psychiatric: Denies anxiety, Denies depression, Denies suicidal ideation Endocrine: Denies fatigue, Denies weight change Past Medical History Past Medical History: Cancer, Diabetes Mellitus Additional Past Medical History / Comment(s): colorectal CA status post chemotherapy and radiation prior to surgery will, status post bowel resection and colostomy placement followed by 6 months of chemotherapy completed in November 2012. Diabetes mellitus type 2, insulin requiring. Morbid obesity status post lap band surgery with loss of 40 pounds net. History of Any Multi-Drug Resistant Organisms: MRSA Date of last positivie culture/infection: 2011 MDRO Source:: abdominal wound Past Surgical History: Bariatric Surgery, Bowel Resection Additional Past Surgical History / Comment(s): Bowel resection and colostomy followed by reconstruction and closure of the anal opening, lap band surgery 2005 Past Anesthesia/Blood Transfusion Reactions: No Reported Reaction Past Psychological History: No Psychological Hx Reported Smoking Status: Never smoker Past Alcohol Use History: None Reported Additional Past Alcohol Use History / Comment(s): Patient is a lifelong nonsmoker. She denies any marijuana or street drug use. She drinks occasional alcohol. She does not have CPAP, nebulizer or ambulatory aids at home. She lives alone. She does not have any children. Past Drug Use History: None Reported - Past Family History Mother Family Medical History: Cancer Additional Family Medical History / Comment(s): Mother at age 62 from vulva cancer Father Family Medical History: Coronary Artery Disease (CAD), Diabetes Mellitus, Renal Disease Additional Family Medical History / Comment(s): Father at age 72 from heart failure with history of kidney disease secondary to diabetes. Sister(s) Additional Family Medical History / Comment(s): Patient has 3 sisters and one has diabetes. Patient does not have any brothers. Medications and Allergies Home Medications Medication Instructions Recorded Confirmed Type Insulin Aspart [NovoLOG] See Protocol SQ TID 06/19/16 08/30/17 History Simvastatin [Zocor] 10 mg PO HS 06/19/16 08/29/17 History Albuterol Inhaler [Ventolin Hfa 1 - 2 puff INHALATION RT-Q6H PRN 08/29/17 History Inhaler] Canagliflozin [Invokana] 100 mg PO DAILY 08/29/17 08/29/17 History Insulin Detemir [Levemir] 50 unit SQ HS 08/29/17 08/30/17 History Lisinopril [Zestril] 2.5 mg PO DAILY 08/29/17 08/29/17 History cycloSPORINE [Restasis] 1 drop BOTH EYES BID 08/30/17 08/30/17 History Allergies Allergy/AdvReac Type Severity Reaction Status Date / Time adhesive tape Allergy Rash/Hives Verified 08/29/17 22:23 amoxicillin Allergy Rash/Hives Verified 08/29/17 22:23 Physical Exam Vitals: Vital Signs Temp Pulse Resp BP Pulse Ox 08/30/17 12:00 98.1 F 95 18 108/58 100 08/30/17 11:00 89 17 126/68 100 08/30/17 10:00 97 21 102/52 99 08/30/17 09:00 101 H 15 118/52 96 08/30/17 08:00 98.0 F 104 H 17 149/69 99 08/30/17 07:00 102 H 20 134/57 96 08/30/17 06:00 105 H 20 121/57 97 08/30/17 05:00 110 H 18 116/57 98 08/30/17 04:00 108 H 20 127/71 100 08/30/17 03:45 98.0 F 108 H 22 120/61 100 08/30/17 03:15 98.0 F 106 H 18 137/64 97 08/30/17 02:05 98.9 F 109 H 18 151/69 100 08/30/17 01:10 106 H 18 137/64 98 08/29/17 21:54 97.9 F 110 H 20 134/84 95 Intake and Output 08/29/17 08/30/17 08/30/17 22:59 06:59 14:59 Intake Total 385.09 2192.112 Output Total 500 1850 Balance -114.91 342.112 Intake: IV 375 625 Dextrose 5% in Water 1, 375 625 000 ml @ 125 mls/hr IV . Q8H48M AYAN with Sodium Bicarb (1 Meq/ml) 100 ml Rx#:[id number] Intake, IV Titration 10.09 707.112 Amount Dextrose 5% in Water 1, 200 000 ml @ 200 mls/hr IV . Q5H AYAN Rx#:[id number] Insulin Regular 100 unit 10.09 7.112 In Sodium Chloride 0.9% 100 ml @ 0.1 UNITS/KG/HR 9.39 mls/hr IV .[id number] AYAN Rx#:[id number] Sodium Phosphate 10 mmol 500 In Sodium Chloride 0.9% 250 ml @ 125 mls/hr IVPB Q2H AYAN Rx#:[id number] Oral 860 Output: Urine 500 1600 Stool 250 Other: Voiding Method Toilet Toilet # Voids 0 Weight 92.986 kg 94 kg 94 kg Gen: This is a obese 52-year-old female. She is resting in ICU bed appears to be comfortable and in no acute distress. HEENT: Head is atraumatic, normocephalic. Pupils equal, round. Sclerae is anicteric. NECK: Supple. No JVD. No lymphadenopathy. No thyromegaly. LUNGS: Clear to auscultation. No wheezes or rhonchi. No intercostal retractions. HEART: Regular rate and rhythm. No murmur. ABDOMEN: Obese. Soft. Bowel sounds are present. No masses. No tenderness. Colostomy on the left side with gas and round stool. EXTREMITIES: No pedal edema. No calf tenderness. Dorsalis pedis +2 bilaterally. NEUROLOGICAL: Patient is awake, alert and oriented x3. Cranial nerves 2 through 12 are grossly intact. Results CBC & Chem 7: 08/30/17 04:00 08/30/17 12:49 Labs: Abnormal Lab Results - Last 24 Hours (Table) 08/29/17 08/29/17 08/29/17 Range/Units 22:15 22:15 22:22 WBC 12.9 H (3.8-10.6) k/uL RBC 5.87 H (3.80-5.40) m/uL Hgb 17.6 H (11.4-16.0) gm/dL Hct 51.8 H (34.0-46.0) % Neutrophils # 11.2 H (1.3-7.7) k/uL Lymphocytes # (1.0-4.8) k/uL ABG pH (7.35-7.45) ABG pCO2 (35-45) mmHg ABG HCO3 (21-25) mmol/L ABG Total CO2 (19-24) mmol/L ABG O2 Saturation (94-97) % VBG pH (7.31-7.41) VBG pCO2 (37-51) mmHg VBG HCO3 (24-28) mmol/L Sodium (137-145) mmol/L Chloride (98-107) mmol/L Carbon Dioxide 6 L* (22-30) mmol/L Glucose 165 H (74-99) mg/dL POC Glucose (mg/dL) 157 H (75-99) mg/dL Calcium 10.5 H (8.4-10.2) mg/dL Phosphorus (2.5-4.5) mg/dL Albumin 5.4 H (3.5-5.0) g/dL Urine Protein (Negative) Urine Glucose (UA) (Negative) Urine Ketones (Negative) Urine Blood (Negative) Urine Mucus (None) /hpf 08/29/17 08/29/17 08/29/17 Range/Units 22:35 23:23 23:42 WBC (3.8-10.6) k/uL RBC (3.80-5.40) m/uL Hgb (11.4-16.0) gm/dL Hct (34.0-46.0) % Neutrophils # (1.3-7.7) k/uL Lymphocytes # (1.0-4.8) k/uL ABG pH (7.35-7.45) ABG pCO2 (35-45) mmHg ABG HCO3 (21-25) mmol/L ABG Total CO2 (19-24) mmol/L ABG O2 Saturation (94-97) % VBG pH 7.13 L* 7.04 L* (7.31-7.41) VBG pCO2 18 L* 25 L (37-51) mmHg VBG HCO3 6 L* 7 L* (24-28) mmol/L Sodium (137-145) mmol/L Chloride (98-107) mmol/L Carbon Dioxide (22-30) mmol/L Glucose (74-99) mg/dL POC Glucose (mg/dL) (75-99) mg/dL Calcium (8.4-10.2) mg/dL Phosphorus (2.5-4.5) mg/dL Albumin (3.5-5.0) g/dL Urine Protein 1+ H (Negative) Urine Glucose (UA) 4+ H (Negative) Urine Ketones 4+ H (Negative) Urine Blood Trace H (Negative) Urine Mucus Rare H (None) /hpf 08/30/17 08/30/17 08/30/17 Range/Units 01:56 02:37 04:00 WBC 10.7 H (3.8-10.6) k/uL RBC (3.80-5.40) m/uL Hgb (11.4-16.0) gm/dL Hct (34.0-46.0) % Neutrophils # 9.6 H (1.3-7.7) k/uL Lymphocytes # 0.6 L (1.0-4.8) k/uL ABG pH (7.35-7.45) ABG pCO2 (35-45) mmHg ABG HCO3 (21-25) mmol/L ABG Total CO2 (19-24) mmol/L ABG O2 Saturation (94-97) % VBG pH (7.31-7.41) VBG pCO2 (37-51) mmHg VBG HCO3 (24-28) mmol/L Sodium (137-145) mmol/L Chloride (98-107) mmol/L Carbon Dioxide (22-30) mmol/L Glucose (74-99) mg/dL POC Glucose (mg/dL) 140 H 118 H (75-99) mg/dL Calcium (8.4-10.2) mg/dL Phosphorus (2.5-4.5) mg/dL Albumin (3.5-5.0) g/dL Urine Protein (Negative) Urine Glucose (UA) (Negative) Urine Ketones (Negative) Urine Blood (Negative) Urine Mucus (None) /hpf 08/30/17 08/30/17 08/30/17 Range/Units 04:03 04:07 04:20 WBC (3.8-10.6) k/uL RBC (3.80-5.40) m/uL Hgb (11.4-16.0) gm/dL Hct (34.0-46.0) % Neutrophils # (1.3-7.7) k/uL Lymphocytes # (1.0-4.8) k/uL ABG pH 7.07 L* (7.35-7.45) ABG pCO2 23 L (35-45) mmHg ABG HCO3 7 L* (21-25) mmol/L ABG Total CO2 7 L (19-24) mmol/L ABG O2 Saturation (94-97) % VBG pH (7.31-7.41) VBG pCO2 (37-51) mmHg VBG HCO3 (24-28) mmol/L Sodium (137-145) mmol/L Chloride 111 H (98-107) mmol/L Carbon Dioxide 7 L* (22-30) mmol/L Glucose 108 H (74-99) mg/dL POC Glucose (mg/dL) 103 H (75-99) mg/dL Calcium (8.4-10.2) mg/dL Phosphorus (2.5-4.5) mg/dL Albumin (3.5-5.0) g/dL Urine Protein (Negative) Urine Glucose (UA) (Negative) Urine Ketones (Negative) Urine Blood (Negative) Urine Mucus (None) /hpf 08/30/17 08/30/17 08/30/17 Range/Units 05:00 06:00 08:06 WBC (3.8-10.6) k/uL RBC (3.80-5.40) m/uL Hgb (11.4-16.0) gm/dL Hct (34.0-46.0) % Neutrophils # (1.3-7.7) k/uL Lymphocytes # (1.0-4.8) k/uL ABG pH (7.35-7.45) ABG pCO2 (35-45) mmHg ABG HCO3 (21-25) mmol/L ABG Total CO2 (19-24) mmol/L ABG O2 Saturation (94-97) % VBG pH (7.31-7.41) VBG pCO2 (37-51) mmHg VBG HCO3 (24-28) mmol/L Sodium (137-145) mmol/L Chloride (98-107) mmol/L Carbon Dioxide (22-30) mmol/L Glucose (74-99) mg/dL POC Glucose (mg/dL) 104 H 108 H 115 H (75-99) mg/dL Calcium (8.4-10.2) mg/dL Phosphorus (2.5-4.5) mg/dL Albumin (3.5-5.0) g/dL Urine Protein (Negative) Urine Glucose (UA) (Negative) Urine Ketones (Negative) Urine Blood (Negative) Urine Mucus (None) /hpf 08/30/17 08/30/17 08/30/17 Range/Units 08:30 09:03 10:08 WBC (3.8-10.6) k/uL RBC (3.80-5.40) m/uL Hgb (11.4-16.0) gm/dL Hct (34.0-46.0) % Neutrophils # (1.3-7.7) k/uL Lymphocytes # (1.0-4.8) k/uL ABG pH (7.35-7.45) ABG pCO2 (35-45) mmHg ABG HCO3 (21-25) mmol/L ABG Total CO2 (19-24) mmol/L ABG O2 Saturation (94-97) % VBG pH (7.31-7.41) VBG pCO2 (37-51) mmHg VBG HCO3 (24-28) mmol/L Sodium 136 L (137-145) mmol/L Chloride (98-107) mmol/L Carbon Dioxide 8 L* (22-30) mmol/L Glucose 132 H (74-99) mg/dL POC Glucose (mg/dL) 126 H 112 H (75-99) mg/dL Calcium (8.4-10.2) mg/dL Phosphorus 1.9 L (2.5-4.5) mg/dL Albumin (3.5-5.0) g/dL Urine Protein (Negative) Urine Glucose (UA) (Negative) Urine Ketones (Negative) Urine Blood (Negative) Urine Mucus (None) /hpf 08/30/17 08/30/17 08/30/17 Range/Units 11:15 11:34 12:02 WBC (3.8-10.6) k/uL RBC (3.80-5.40) m/uL Hgb (11.4-16.0) gm/dL Hct (34.0-46.0) % Neutrophils # (1.3-7.7) k/uL Lymphocytes # (1.0-4.8) k/uL ABG pH 7.21 L (7.35-7.45) ABG pCO2 26 L (35-45) mmHg ABG HCO3 10 L* (21-25) mmol/L ABG Total CO2 11 L (19-24) mmol/L ABG O2 Saturation 98.3 H (94-97) % VBG pH (7.31-7.41) VBG pCO2 (37-51) mmHg VBG HCO3 (24-28) mmol/L Sodium (137-145) mmol/L Chloride (98-107) mmol/L Carbon Dioxide (22-30) mmol/L Glucose (74-99) mg/dL POC Glucose (mg/dL) 114 H 116 H (75-99) mg/dL Calcium (8.4-10.2) mg/dL Phosphorus (2.5-4.5) mg/dL Albumin (3.5-5.0) g/dL Urine Protein (Negative) Urine Glucose (UA) (Negative) Urine Ketones (Negative) Urine Blood (Negative) Urine Mucus (None) /hpf Thrombosis Risk Factor Assmnt - DVT/VTE Prophylaxis DVT/VTE Prophylaxis: Pharmacologic Prophylaxis ordered - Choose All That Apply Any of the Below Risk Factors Present?: Yes Each Factor Represents 1 point: Age 41-60 years Other Risk Factors: No Other congenital or acquired thrombophilia - If yes, enter type in comment: No Thrombosis Risk Factor Assessment Total Risk Factor Score: 1 Thrombosis Risk Factor Assessment Level: Low Risk Assessment and Plan Plan: 1. Metabolic acidosis. Patient to continue on a bicarb drip. Consult added for Dr. Jacques. Consult with Dr. Davis is appreciated. Lab work as every 4 hours. Maintain patient in ICU. 2. Diabetes mellitus type 2, insulin requiring, noncompliant. Patient recently chose to stop taking insulin. She is normally on Levemir 50 units at bedtime and NovoLog of 10-18 units with each meal. Continue insulin drip along with bicarbonate until acidosis is improved. Patient would benefit from follow- up with pants cutter. 3. History of colorectal cancer status post chemotherapy, radiation and bowel resection with colostomy, stable. 4. History of morbid obesity status post lap band surgery, stable. 5. Hyperlipidemia. Continue Lipitor. 6. DVT prophylaxis. Continue heparin subcu. 7. GI prophylaxis. Protonix. Patient will be admitted to the hospital for a minimum of 3 night stay. Discharge plan: Return home Impression and plan of care have been directed as dictated by the signing physician. Iraida Wan nurse practitioner acting as scribe for signing physician.
[2017-08-30 13:04] LABS: Glucose,Whole Blood 169 mg/dL (75-99)
[2017-08-30 13:15] LABS: Anion Gap 18 mmol/L; Blood Urea Nitrogen 11 mg/dL (7-17); Calcium 8.3 mg/dL (8.4-10.2); Carbon Dioxide 11 mmol/L (22-30); Chloride 107 mmol/L (98-107); Glucose 172 mg/dL (74-99); Potassium 3.5 mmol/L (3.5-5.1); Sodium 136 mmol/L (137-145)
[2017-08-30 14:03] LABS: Glucose,Whole Blood 178 mg/dL (75-99)
[2017-08-30] MEDS: POTASSIUM CHLORIDE ER 20 MEQ TAB.ER PO SCH ×2 (14:03→16:06)
[2017-08-30 15:18] LABS: Glucose,Whole Blood 140 mg/dL (75-99)
[2017-08-30 15:57] LABS: Hemoglobin A1C 6.5 % (4.0-6.0)
[2017-08-30 16:09] LABS: Glucose,Whole Blood 133 mg/dL (75-99)
[2017-08-30 16:40] LABS: Anion Gap 16 mmol/L; Blood Urea Nitrogen 11 mg/dL (7-17); Calcium 8.4 mg/dL (8.4-10.2); Carbon Dioxide 14 mmol/L (22-30); Chloride 107 mmol/L (98-107); Glucose 138 mg/dL (74-99); Potassium 3.5 mmol/L (3.5-5.1); Sodium 137 mmol/L (137-145)
[2017-08-30 17:10] LABS: Glucose,Whole Blood 146 mg/dL (75-99)
[2017-08-30] MEDS ORDERED: ONDANSETRON 4 MG/2 ML VIAL IVP PRN (17:19)
[2017-08-30 18:13] LABS: Glucose,Whole Blood 205 mg/dL (75-99)
[2017-08-30 19:10] LABS: Glucose,Whole Blood 209 mg/dL (75-99)
[2017-08-30 20:11] LABS: Glucose,Whole Blood 199 mg/dL (75-99)
[2017-08-30 20:59] LABS: Anion Gap 13 mmol/L; Blood Urea Nitrogen 11 mg/dL (7-17); Calcium 8.7 mg/dL (8.4-10.2); Carbon Dioxide 17 mmol/L (22-30); Chloride 106 mmol/L (98-107); Glucose 167 mg/dL (74-99); Potassium 3.7 mmol/L (3.5-5.1); Sodium 136 mmol/L (137-145)
[2017-08-30] MEDS ORDERED: INSULIN DETEMIR 100 UNIT/ML 10 ML VIAL SQ SCH (21:00)
[2017-08-30 21:10] LABS: Glucose,Whole Blood 161 mg/dL (75-99)
[2017-08-30] MEDS: ATORVASTATIN 10 MG TAB PO SCH (21:49)
[2017-08-30 22:10] LABS: Glucose,Whole Blood 148 mg/dL (75-99)
[2017-08-30 23:20] LABS: Glucose,Whole Blood 158 mg/dL (75-99)
[2017-08-31 00:10] LABS: Glucose,Whole Blood 172 mg/dL (75-99)
[2017-08-31 01:00] LABS: Glucose,Whole Blood 177 mg/dL (75-99)
[2017-08-31 01:25] LABS: Anion Gap 14 mmol/L; Blood Urea Nitrogen 8 mg/dL (7-17); Calcium 8.7 mg/dL (8.4-10.2); Carbon Dioxide 16 mmol/L (22-30); Chloride 107 mmol/L (98-107); Glucose 171 mg/dL (74-99); Potassium 3.3 mmol/L (3.5-5.1); Sodium 137 mmol/L (137-145)
[2017-08-31 02:19] LABS: Glucose,Whole Blood 177 mg/dL (75-99)
[2017-08-31] MEDS: POTASSIUM CHLORIDE ER 20 MEQ TAB.ER PO SCH ×4 (02:56→12:41)
[2017-08-31] MEDS: HEPARIN SODIUM,PORCINE 5,000 UNIT/ML 1 ML VIAL SQ SCH ×3 (02:56→17:12)
[2017-08-31 03:22] LABS: Glucose,Whole Blood 179 mg/dL (75-99)
[2017-08-31 04:29] LABS: Glucose,Whole Blood 176 mg/dL (75-99)
[2017-08-31] MEDS: DEXTROSE 5% IN WATER 1,000 ML IV SCH ×2 (04:44→09:00)
[2017-08-31 05:00] LABS: Anion Gap 16 mmol/L; Calcium 8.9 mg/dL (8.4-10.2); Carbon Dioxide 13 mmol/L (22-30); Chloride 107 mmol/L (98-107); Glucose 176 mg/dL (74-99); Sodium 136 mmol/L (137-145)
[2017-08-31 05:11] LABS: Blood Urea Nitrogen 7 mg/dL (7-17)
[2017-08-31 05:23] LABS: Glucose,Whole Blood 168 mg/dL (75-99)
[2017-08-31 05:39] LABS: Basophils % (A) 0 %; Eosinophils # (A) 0.3 k/uL (0-0.7); Eosinophils % (A) 5 %; HCT 39.9 % (34.0-46.0); HGB 14.2 gm/dL (11.4-16.0); Hyperchromasia Slight; Lymphocytes % (A) 20 %; MCH 30.2 pg (25.0-35.0); MCHC 35.5 g/dL (31.0-37.0); Mean Platelet Volume 6.3; Monocytes # (A) 0.3 k/uL (0-1.0); Monocytes % (A) 6 %; Neutrophils # (A) 3.3 k/uL (1.3-7.7); Neutrophils % (A) 67 %; Platelet Count 165 k/uL (150-450); Poikilocytosis Slight
[2017-08-31 06:18] LABS: Glucose,Whole Blood 216 mg/dL (75-99)
[2017-08-31 06:58] LABS: Glucose,Whole Blood 170 mg/dL (75-99)
[2017-08-31] MEDS: cycloSPORINE 0.05% OPHTH 0.4 ML DROPERETTE BOTH EYES SCH ×2 (07:46→20:11)
[2017-08-31] MEDS: PANTOPRAZOLE 40 MG/10 ML VIAL IV SCH (07:46)
[2017-08-31] MEDS: LISINOPRIL 2.5 MG TAB PO SCH (07:47)
[2017-08-31 08:13] LABS: Glucose,Whole Blood 187 mg/dL (75-99)
[2017-08-31] MEDS ORDERED: DEXTROSE 10% IN WATER 500 ML in EMPTY BAG 1 BAG IV SCH (09:00)
[2017-08-31 09:07] LABS: Carbon Dioxide 20 mmol/L (22-30); Glucose 180 mg/dL (74-99); Potassium 3.4 mmol/L (3.5-5.1); Sodium 139 mmol/L (137-145)
[2017-08-31 09:08] LABS: Blood Urea Nitrogen 7 mg/dL (7-17); Calcium 8.9 mg/dL (8.4-10.2)
[2017-08-31 09:10] LABS: Glucose,Whole Blood 182 mg/dL (75-99)
[2017-08-31 09:40] LABS: Anion Gap 13 mmol/L; Chloride 106 mmol/L (98-107)
[2017-08-31] MEDS: INSULIN REGULAR 100 UNIT in SODIUM CHLORIDE 0.9% 100 ML IV SCH ×2 (09:51→09:53)
[2017-08-31 09:56] LABS: Glucose,Whole Blood 182 mg/dL (75-99)
--- NOTE | 2017-08-31 10:50 | P.PN ---
Subjective Progress Note Date: 08/31/17 Principal diagnosis: DKA Patient is alert and oriented 3 denying chest pain shortness breath nausea vomiting abdominal pain dizziness lightheadedness or blurry vision. Patient is on minimum insulin infusion and her glucose is ranging between 100-150. Patient is on clear liquid diet and feels much improved and would like to go home Objective - Vital Signs Vital signs: Vital Signs Temp 98.1 F 08/31/17 08:00 Pulse 94 08/31/17 09:00 Resp 18 08/31/17 09:00 BP 118/60 08/31/17 09:00 Pulse Ox 95 08/31/17 09:00 Intake & Output 08/30/17 08/31/17 08/31/17 18:59 06:59 18:59 Intake Total 3633.072 2400.146 600.161 Output Total 3500 6400 600 Balance 133.072 -3999.854 0.161 Weight 94 kg 91 kg Intake: IV 625 2200 200 Dextrose 5% in Water 1, 625 2200 200 000 ml @ 125 mls/hr IV . Q8H48M AYAN with Sodium Bicarb (1 Meq/ml) 100 ml Rx#:[id number] Intake, IV Titration 1908.072 200.146 400.161 Amount Dextrose 5% in Water 1, 1400 200 400 000 ml @ 200 mls/hr IV . Q5H AYAN Rx#:[id number] Insulin Regular 100 unit 7.112 In Sodium Chloride 0.9% 100 ml @ 0.1 UNITS/KG/HR 9.39 mls/hr IV .[id number] AYAN Rx#:[id number] Insulin Regular 100 unit 0.960 0.146 0.161 In Sodium Chloride 0.9% 100 ml @ 0.1 UNITS/KG/HR 9.49 mls/hr IV .[id number] AYAN Rx#:[id number] Sodium Phosphate 10 mmol 500 In Sodium Chloride 0.9% 250 ml @ 125 mls/hr IVPB Q2H AYAN Rx#:[id number] Oral 1100 Output: Urine 3250 5900 600 Stool 250 500 Other: Voiding Method Toilet Toilet Toilet # Voids 1 0 - Exam Gen.: in stated age, no acute distress Heart: Normal S1-S2 Lungs: Clear to auscultation bilaterally Abdomen: Soft, no tenderness, positive bowel sounds in all 4 quadrant no guarding or rebound, colostomy bag in place Skin: No new rash Psych: Alert and oriented 3 Neuro: No focal deficit - Labs CBC & Chem 7: 08/31/17 05:24 08/31/17 08:35 Labs: Abnormal Lab Results - Last 24 Hours (Table) 08/30/17 08/30/17 08/30/17 Range/Units 04:03 11:15 11:34 ABG pH 7.21 L (7.35-7.45) ABG pCO2 26 L (35-45) mmHg ABG HCO3 10 L* (21-25) mmol/L ABG Total CO2 11 L (19-24) mmol/L ABG O2 Saturation 98.3 H (94-97) % Sodium (137-145) mmol/L Potassium (3.5-5.1) mmol/L Carbon Dioxide (22-30) mmol/L Glucose (74-99) mg/dL POC Glucose (mg/dL) 114 H (75-99) mg/dL Hemoglobin A1c 6.5 H (4.0-6.0) % Calcium (8.4-10.2) mg/dL 08/30/17 08/30/17 08/30/17 Range/Units 12:02 12:49 13:02 ABG pH (7.35-7.45) ABG pCO2 (35-45) mmHg ABG HCO3 (21-25) mmol/L ABG Total CO2 (19-24) mmol/L ABG O2 Saturation (94-97) % Sodium 136 L (137-145) mmol/L Potassium (3.5-5.1) mmol/L Carbon Dioxide 11 L (22-30) mmol/L Glucose 172 H (74-99) mg/dL POC Glucose (mg/dL) 116 H 169 H (75-99) mg/dL Hemoglobin A1c (4.0-6.0) % Calcium 8.3 L (8.4-10.2) mg/dL 08/30/17 08/30/17 08/30/17 Range/Units 14:01 15:16 16:07 ABG pH (7.35-7.45) ABG pCO2 (35-45) mmHg ABG HCO3 (21-25) mmol/L ABG Total CO2 (19-24) mmol/L ABG O2 Saturation (94-97) % Sodium (137-145) mmol/L Potassium (3.5-5.1) mmol/L Carbon Dioxide (22-30) mmol/L Glucose (74-99) mg/dL POC Glucose (mg/dL) 178 H 140 H 133 H (75-99) mg/dL Hemoglobin A1c (4.0-6.0) % Calcium (8.4-10.2) mg/dL 08/30/17 08/30/17 08/30/17 Range/Units 16:19 17:08 18:11 ABG pH (7.35-7.45) ABG pCO2 (35-45) mmHg ABG HCO3 (21-25) mmol/L ABG Total CO2 (19-24) mmol/L ABG O2 Saturation (94-97) % Sodium (137-145) mmol/L Potassium (3.5-5.1) mmol/L Carbon Dioxide 14 L (22-30) mmol/L Glucose 138 H (74-99) mg/dL POC Glucose (mg/dL) 146 H 205 H (75-99) mg/dL Hemoglobin A1c (4.0-6.0) % Calcium (8.4-10.2) mg/dL 08/30/17 08/30/17 08/30/17 Range/Units 19:09 20:09 20:32 ABG pH (7.35-7.45) ABG pCO2 (35-45) mmHg ABG HCO3 (21-25) mmol/L ABG Total CO2 (19-24) mmol/L ABG O2 Saturation (94-97) % Sodium 136 L (137-145) mmol/L Potassium (3.5-5.1) mmol/L Carbon Dioxide 17 L (22-30) mmol/L Glucose 167 H (74-99) mg/dL POC Glucose (mg/dL) 209 H 199 H (75-99) mg/dL Hemoglobin A1c (4.0-6.0) % Calcium (8.4-10.2) mg/dL 08/30/17 08/30/17 08/30/17 Range/Units 21:08 22:03 23:07 ABG pH (7.35-7.45) ABG pCO2 (35-45) mmHg ABG HCO3 (21-25) mmol/L ABG Total CO2 (19-24) mmol/L ABG O2 Saturation (94-97) % Sodium (137-145) mmol/L Potassium (3.5-5.1) mmol/L Carbon Dioxide (22-30) mmol/L Glucose (74-99) mg/dL POC Glucose (mg/dL) 161 H 148 H 158 H (75-99) mg/dL Hemoglobin A1c (4.0-6.0) % Calcium (8.4-10.2) mg/dL 08/31/17 08/31/17 08/31/17 Range/Units 00:08 00:55 00:59 ABG pH (7.35-7.45) ABG pCO2 (35-45) mmHg ABG HCO3 (21-25) mmol/L ABG Total CO2 (19-24) mmol/L ABG O2 Saturation (94-97) % Sodium (137-145) mmol/L Potassium 3.3 L (3.5-5.1) mmol/L Carbon Dioxide 16 L (22-30) mmol/L Glucose 171 H (74-99) mg/dL POC Glucose (mg/dL) 172 H 177 H (75-99) mg/dL Hemoglobin A1c (4.0-6.0) % Calcium (8.4-10.2) mg/dL 08/31/17 08/31/17 08/31/17 Range/Units 02:12 03:04 04:09 ABG pH (7.35-7.45) ABG pCO2 (35-45) mmHg ABG HCO3 (21-25) mmol/L ABG Total CO2 (19-24) mmol/L ABG O2 Saturation (94-97) % Sodium (137-145) mmol/L Potassium (3.5-5.1) mmol/L Carbon Dioxide (22-30) mmol/L Glucose (74-99) mg/dL POC Glucose (mg/dL) 177 H 179 H 176 H (75-99) mg/dL Hemoglobin A1c (4.0-6.0) % Calcium (8.4-10.2) mg/dL 08/31/17 08/31/17 08/31/17 Range/Units 04:12 05:03 06:16 ABG pH (7.35-7.45) ABG pCO2 (35-45) mmHg ABG HCO3 (21-25) mmol/L ABG Total CO2 (19-24) mmol/L ABG O2 Saturation (94-97) % Sodium 136 L (137-145) mmol/L Potassium (3.5-5.1) mmol/L Carbon Dioxide 13 L (22-30) mmol/L Glucose 176 H (74-99) mg/dL POC Glucose (mg/dL) 168 H 216 H (75-99) mg/dL Hemoglobin A1c (4.0-6.0) % Calcium (8.4-10.2) mg/dL 08/31/17 08/31/17 08/31/17 Range/Units 06:57 08:12 08:35 ABG pH (7.35-7.45) ABG pCO2 (35-45) mmHg ABG HCO3 (21-25) mmol/L ABG Total CO2 (19-24) mmol/L ABG O2 Saturation (94-97) % Sodium (137-145) mmol/L Potassium 3.4 L (3.5-5.1) mmol/L Carbon Dioxide 20 L (22-30) mmol/L Glucose 180 H (74-99) mg/dL POC Glucose (mg/dL) 170 H 187 H (75-99) mg/dL Hemoglobin A1c (4.0-6.0) % Calcium (8.4-10.2) mg/dL 08/31/17 08/31/17 Range/Units 08:58 09:54 ABG pH (7.35-7.45) ABG pCO2 (35-45) mmHg ABG HCO3 (21-25) mmol/L ABG Total CO2 (19-24) mmol/L ABG O2 Saturation (94-97) % Sodium (137-145) mmol/L Potassium (3.5-5.1) mmol/L Carbon Dioxide (22-30) mmol/L Glucose (74-99) mg/dL POC Glucose (mg/dL) 182 H 182 H (75-99) mg/dL Hemoglobin A1c (4.0-6.0) % Calcium (8.4-10.2) mg/dL Assessment and Plan Assessment: 1. DKA. 2. Noncompliance with medication therapy. 3. Hypertension. 4. Hyperlipidemia. 5. History of colorectal cancer status post colostomy. I have discussed with the nursing staff management for DKA protocol where I would like to start patients on D5 W and continue with insulin infusion until the anion gap is less than 12 and then insulin drip can be discontinued to be followed by subcutaneous insulin with meals. Would continue repeating chemistry every 4 hours to monitor electrolytes and anion gap closely. Plan discussed with the nursing staff and patient at the bedside. Patient counseled regarding medication adherence and close follow-up with her primary care physician. Discharge planning in the morning if patient's continued to be hemodynamic a stable and her anion gap is closed
[2017-08-31 11:03] LABS: Glucose,Whole Blood 163 mg/dL (75-99)
[2017-08-31] MEDS ORDERED: INSULIN NPH 300 UNIT/3 ML VIAL SQ ONE (11:09)
--- NOTE | 2017-08-31 12:07 | P.NPCON ---
History of Present Illness - Reason for Consult Consult date: 08/31/17 acute renal failure, metabolic acidosis - Chief Complaint severe acidosis - History of Present Illness This is a 52-year-old female patient of Dr. Wells with past medical history for diabetes mellitus type 2 insulin requiring, being seen in consultation because of severe metabolic acidosis with a large anion gap. This deemed to be from diabetic ketoacidosis acidosis although her blood sugar was not very high. Improving now. Her bicarbonate is improved. Her creatinine was normal. The gap is resolved now. This patient also has had colorectal cancer status post resection and colostomy in 2011 with chemotherapy and radiation prior to surgery and 6 months of chemotherapy after surgery completed in November 2012, morbid obesity status post lap band surgery in 2005. Patient gives history that she eats a lot of sugar such as things like cookies cakes and ice cream and she decided to cut out all her sugars. Her blood sugar then dropped and she stopped taking insulin. On Saturday she stopped taking NovoLog and on Saturday evening she stopped taking Levemir she stop insulins because her blood sugar on Saturday evening was 40. She states she has had no food for the past 2 days. She did call her physician on Saturday was not able to get an appointment until the . She is normally on Levemir 50 units at bedtime and NovoLog 10-18 units with each meal during the day. Patient then developed headache, nausea and palpitations and when she developed palpitations, she decided she needed to come in to the hospital for evaluation. Patient was found to have a CO2 of 6, blood sugar 165, white count 12.9 and hemoglobin 17.6. Troponin was negative. Venous blood gas showed a pH of 7.13, pCO2 18 and bicarb 6. Lactic acid was 0.9. Urinalysis was clear with nitrate and leukoesterase negative. Urine drug screen was negative. Patient does deny any suicidal ideation. Her only over- the-counter medication is Tylenol. She denies any intake of aspirin. Chest x- ray is normal. KUB is nonacute abdomen. Patient was admitted into intensive care unit and consult with Dr. Davis for intensive care management. Patient was started on insulin drip and dextrose with bicarbonate drip. Past Medical History Past Medical History: Cancer, Diabetes Mellitus Additional Past Medical History / Comment(s): colorectal CA status post chemotherapy and radiation prior to surgery will, status post bowel resection and colostomy placement followed by 6 months of chemotherapy completed in November 2012. Diabetes mellitus type 2, insulin requiring. Morbid obesity status post lap band surgery with loss of 40 pounds net. History of Any Multi-Drug Resistant Organisms: MRSA Date of last positivie culture/infection: 2011 MDRO Source:: abdominal wound Past Surgical History: Bariatric Surgery, Bowel Resection Additional Past Surgical History / Comment(s): Bowel resection and colostomy followed by reconstruction and closure of the anal opening, lap band surgery 2005 Past Anesthesia/Blood Transfusion Reactions: No Reported Reaction Past Psychological History: No Psychological Hx Reported Smoking Status: Never smoker Past Alcohol Use History: None Reported Additional Past Alcohol Use History / Comment(s): Patient is a lifelong nonsmoker. She denies any marijuana or street drug use. She drinks occasional alcohol. She does not have CPAP, nebulizer or ambulatory aids at home. She lives alone. She does not have any children. Past Drug Use History: None Reported - Past Family History Mother Family Medical History: Cancer Additional Family Medical History / Comment(s): Mother at age 62 from vulva cancer Father Family Medical History: Coronary Artery Disease (CAD), Diabetes Mellitus, Renal Disease Additional Family Medical History / Comment(s): Father at age 72 from heart failure with history of kidney disease secondary to diabetes. Sister(s) Additional Family Medical History / Comment(s): Patient has 3 sisters and one has diabetes. Patient does not have any brothers. Medications and Allergies Home Medications Medication Instructions Recorded Confirmed Type Insulin Aspart [NovoLOG] See Protocol SQ TID 06/19/16 08/30/17 History Simvastatin [Zocor] 10 mg PO 06/19/16 08/29/17 History Albuterol Inhaler [Ventolin Hfa 1 - 2 puff INHALATION RT-Q6H PRN 08/29/17 History Inhaler] Canagliflozin [Invokana] 100 mg PO DAILY 08/29/17 08/29/17 History Insulin Detemir [Levemir] 50 unit SQ HS 08/29/17 08/30/17 History Lisinopril [Zestril] 2.5 mg PO DAILY 08/29/17 08/29/17 History cycloSPORINE [Restasis] 1 drop BOTH EYES BID 06/08/18 06/08/18 History Allergies Allergy/AdvReac Type Severity Reaction Status Date / Time adhesive tape Allergy Rash/Hives Verified 08/29/17 22:23 amoxicillin Allergy Rash/Hives Verified 08/29/17 22:23 Physical Exam Vitals: Vital Signs Temp Pulse Resp BP Pulse Ox 08/31/17 11:00 87 19 121/60 98 08/31/17 10:00 92 17 123/56 96 08/31/17 09:00 94 18 118/60 95 08/31/17 08:00 98.1 F 90 18 129/63 94 L 08/31/17 07:00 75 13 100/48 95 08/31/17 06:00 79 15 115/61 97 08/31/17 05:00 97.8 F 77 12 115/61 96 08/31/17 04:00 98 13 106/62 93 L 08/31/17 03:00 83 12 106/61 98 08/31/17 02:00 79 14 111/59 95 08/31/17 01:00 83 11 L 99/58 97 08/31/17 00:00 78 15 95/56 97 08/30/17 23:11 78 13 117/54 96 08/30/17 23:00 80 10 L 117/54 96 08/30/17 22:00 80 17 111/57 96 08/30/17 21:00 98.0 F 86 14 113/60 99 08/30/17 20:00 89 17 113/60 95 08/30/17 19:00 90 23 106/61 98 08/30/17 18:00 91 16 105/58 97 08/30/17 17:00 85 13 111/65 96 08/30/17 16:00 97.9 F 85 14 115/55 97 08/30/17 15:00 87 14 105/51 97 08/30/17 14:00 94 92 H 107/55 98 08/30/17 13:00 102 H 18 141/60 96 08/30/17 12:00 98.1 F 95 18 108/58 100 Intake and Output 08/30/17 08/31/17 08/31/17 22:59 06:59 14:59 Intake Total 5786.918 7729 1160.182 Output Total 3350 4050 1250 Balance -1628.894 -2450 -89.818 Intake: IV 600 1600 400 Dextrose 10% in Water 500 200 ml In Empty Bag 1 bag @ 100 mls/hr IV .Q5H AYAN Rx #:[id number] Dextrose 5% in Water 1, 600 1600 200 000 ml @ 125 mls/hr IV . Q8H48M AYAN with Sodium Bicarb (1 Meq/ml) 100 ml Rx#:[id number] Intake, IV Titration 1001.106 0 400.182 Amount Dextrose 5% in Water 1, 1000 400 000 ml @ 200 mls/hr IV . Q5H AYAN Rx#:[id number] Insulin Regular 100 unit 1.106 0 0.182 In Sodium Chloride 0.9% 100 ml @ 0.1 UNITS/KG/HR 9.49 mls/hr IV .[id number] AYAN Rx#:[id number] Oral 120 360 Output: Urine 3100 3800 1250 Stool 250 250 Other: Voiding Method Toilet Toilet Toilet # Voids 0 1 0 Weight 91 kg On examination she is awake alert oriented comfortable HEENT exam no JVP neck is supple no facial asymmetry pupils are equal Lungs are clear to auscultation percussion good air entry bilaterally Heart sounds are unremarkable no murmur rub gallop Abdomen soft nontender she has an ostomy bag Extremity exam was no edema. Warm to touch Neurologically awake alert oriented comfortable. Results - Lab Results Most recent lab results ABG pH 7.21 (7.35-7.45) L 08/30/17 11:34 ABG pCO2 26 mmHg (35-45) L 08/30/17 11:34 ABG pO2 98 mmHg (83-108) 08/30/17 11:34 ABG HCO3 10 mmol/L (21-25) L* 08/30/17 11:34 ABG O2 Saturation 98.3 % (94-97) H 08/30/17 11:34 Calcium 8.9 mg/dL (8.4-10.2) 08/31/17 08:35 Phosphorus 1.9 mg/dL (2.5-4.5) L 08/30/17 08:30 08/31/17 05:24 08/31/17 08:35 Assessment and Plan Assessment: Impression 1. Severe metabolic acidosis with a large gap. Gentle from diabetic ketoacidosis. Her bicarb was 6 on admission and is now 20 this morning. Her gap was 30 and13. 2. No evidence of acute kidney injury with creatinine being 0.5 as of this morning. 3. Mild hypokalemia that developed here with potassium 3.4 secondary to IV fluids, diuresis and glucose and insulin which shifts this potassium in. 4. Other diagnoses include obesity status post lap band with weight loss significantly weight gain. 5. Diabetes for the last 4-5 years. 6. History of CA colon with resection and an ostomy. 7. Mild hypophosphatemia secondary to diuresis and glucose and insulin again which shifts the phosphorus into the cells Recommendation. 1. Continue IV fluids normal saline, as she is eating very well and blood sugars are up there is no need for D5W. 2. Her bicarbonate is 20 can give her by mouth bicarb if necessary. 3. Regarding hypokalemia she can be replaced with about 40 mg of potassium. 4. Check serum magnesium and 5. Check serum phosphorus. Replace as necessary. Thanks for the consult. We'll continue to follow
[2017-08-31 12:43] LABS: Glucose,Whole Blood 132 mg/dL (75-99)
[2017-08-31] MEDS: INSULIN ASPART 100 UNIT/ML 1 ML 10 ML VIAL SQ SCH ×3 (12:43→20:12)
--- NOTE | 2017-08-31 14:07 | P.CNPUL ---
History of Present Illness Consult date: 08/30/17 (late entry note) Reason for consult: other Chief complaint: ICU consult for diabetic ketoacidosis History of present illness: 52-year-old female who was seen eval examined in the ICU this patient has been admitted into the hospital with the nausea and not feeling well generalized weakness long with palpitation, patient history significant for insulin- dependent diabetes mellitus and lately she has been on insulin as a sole therapy for her advance diabetes she also has a history of colon cancer requiring colostomy, about 2 weeks ago patient stopped taking any carbs or sugar related product and also stopped insulin as well patient presented into the hospital with one week history of slow progressive confusion and weakness and palpitation intermittent which become more persistent in the evaluation today in the emergency department was found to have severe degree of diabetic ketoacidosis, with not very high sugar levels. Patient denies any seizure activity loss of consciousness) also denies any chest pain or radiation of pain denies any shortness of breath cough or sputum production denies any nausea vomiting or diarrhea but however lately intermittent episodes of nausea has been present which are more consistent, denies any bowel or bladder related problems except as noted above She is normally on Levemir 50 units at bedtime and NovoLog 10-18 units with each meal during the day. Patient then developed headache, nausea and palpitations and when she developed palpitations, she decided she needed to come in to the hospital for evaluation. Patient was found to have a CO2 of 6, blood sugar 165, white count 12.9 and hemoglobin 17.6. Troponin was negative. Venous blood gas showed a pH of 7.13, pCO2 18 and bicarb 6. Lactic acid was 0.9. Urinalysis was clear with nitrate and leukoesterase negative. Urine drug screen was negative. Review of Systems All systems: negative Past Medical History Past Medical History: Cancer, Diabetes Mellitus Additional Past Medical History / Comment(s): colorectal CA status post chemotherapy and radiation prior to surgery will, status post bowel resection and colostomy placement followed by 6 months of chemotherapy completed in November 2012. Diabetes mellitus type 2, insulin requiring. Morbid obesity status post lap band surgery with loss of 40 pounds net. History of Any Multi-Drug Resistant Organisms: MRSA Date of last positivie culture/infection: 2011 MDRO Source:: abdominal wound Past Surgical History: Bariatric Surgery, Bowel Resection Additional Past Surgical History / Comment(s): Bowel resection and colostomy followed by reconstruction and closure of the anal opening, lap band surgery 2006 Past Anesthesia/Blood Transfusion Reactions: No Reported Reaction Past Psychological History: No Psychological Hx Reported Smoking Status: Never smoker Past Alcohol Use History: None Reported Additional Past Alcohol Use History / Comment(s): Patient is a lifelong nonsmoker. She denies any marijuana or street drug use. She drinks occasional alcohol. She does not have CPAP, nebulizer or ambulatory aids at home. She lives alone. She does not have any children. Past Drug Use History: None Reported - Past Family History Mother Family Medical History: Cancer Additional Family Medical History / Comment(s): Mother at age 62 from vulva cancer Father Family Medical History: Coronary Artery Disease (CAD), Diabetes Mellitus, Renal Disease Additional Family Medical History / Comment(s): Father at age 72 from heart failure with history of kidney disease secondary to diabetes. Sister(s) Additional Family Medical History / Comment(s): Patient has 3 sisters and one has diabetes. Patient does not have any brothers. Medications and Allergies Home Medications Medication Instructions Recorded Confirmed Type Insulin Aspart [NovoLOG] See Protocol SQ TID 06/19/16 08/30/17 History Simvastatin [Zocor] 10 mg PO HS 06/19/16 08/29/17 History Albuterol Inhaler [Ventolin Hfa 1 - 2 puff INHALATION RT-Q6H PRN 08/29/17 History Inhaler] Canagliflozin [Invokana] 100 mg PO DAILY 08/29/17 08/29/17 History Insulin Detemir [Levemir] 50 unit SQ 08/29/17 08/30/17 History Lisinopril [Zestril] 2.5 mg PO DAILY 08/29/17 08/29/17 History cycloSPORINE [Restasis] 1 drop BOTH EYES BID 08/30/17 08/30/17 History Allergies Allergy/AdvReac Type Severity Reaction Status Date / Time adhesive tape Allergy Rash/Hives Verified 08/29/17 22:23 amoxicillin Allergy Rash/Hives Verified 08/29/17 22:23 Physical Exam Vitals: Vital Signs Temp Pulse Resp BP Pulse Ox 08/31/17 13:00 92 17 122/66 98 08/31/17 12:00 98.6 F 82 18 112/57 99 08/31/17 11:00 87 19 121/60 98 08/31/17 10:00 92 17 123/56 96 08/31/17 09:00 94 18 118/60 95 08/31/17 08:00 98.1 F 90 18 129/63 94 L 08/31/17 07:00 75 13 100/48 95 08/31/17 06:00 79 15 115/61 97 08/31/17 05:00 97.8 F 77 12 115/61 96 08/31/17 04:00 98 13 106/62 93 L 08/31/17 03:00 83 12 106/61 98 08/31/17 02:00 79 14 111/59 95 08/31/17 01:00 83 11 L 99/58 97 08/31/17 00:00 78 15 95/56 97 08/30/17 23:11 78 13 117/54 96 08/30/17 23:00 80 10 L 117/54 96 08/30/17 22:00 80 17 111/57 96 08/30/17 21:00 98.0 F 86 14 113/60 99 08/30/17 20:00 89 17 113/60 95 08/30/17 19:00 90 23 106/61 98 08/30/17 18:00 91 16 105/58 97 08/30/17 17:00 85 13 111/65 96 08/30/17 16:00 97.9 F 85 14 115/55 97 08/30/17 15:00 87 14 105/51 97 08/30/17 14:00 94 92 H 107/55 98 Intake and Output 08/30/17 08/31/17 08/31/17 22:59 06:59 14:59 Intake Total 5671.959 8435 1160.182 Output Total 3350 4050 1550 Balance -1628.894 -2450 -389.818 Intake: IV 600 1600 400 Dextrose 10% in Water 500 200 ml In Empty Bag 1 bag @ 100 mls/hr IV .Q5H AYAN Rx #:[id number] Dextrose 5% in Water 1, 600 1600 200 000 ml @ 125 mls/hr IV . Q8H48M AYAN with Sodium Bicarb (1 Meq/ml) 100 ml Rx#:[id number] Intake, IV Titration 1001.106 0 400.182 Amount Dextrose 5% in Water 1, 1000 400 000 ml @ 200 mls/hr IV . Q5H AYAN Rx#:[id number] Insulin Regular 100 unit 1.106 0 0.182 In Sodium Chloride 0.9% 100 ml @ 0.1 UNITS/KG/HR 9.49 mls/hr IV .[id number] AYAN Rx#:[id number] Oral 120 360 Output: Urine 3100 3800 1550 Stool 250 250 Other: Voiding Method Toilet Toilet Toilet # Voids 0 1 0 Weight 91 kg Gen: This is a obese 52-year-old female. She is resting in ICU bed appears to be comfortable and in no acute distress. HEENT: Head is atraumatic, normocephalic. Pupils equal, round. Sclerae is anicteric. NECK: Supple. No JVD. No lymphadenopathy. No thyromegaly. LUNGS: Clear to auscultation. No wheezes or rhonchi. No intercostal retractions. HEART: Regular rate and rhythm. No murmur. ABDOMEN: Obese. Soft. Bowel sounds are present. No masses. No tenderness. Colostomy on the left side with gas and round stool. EXTREMITIES: No pedal edema. No calf tenderness. Dorsalis pedis +2 bilaterally. NEUROLOGICAL: Patient is awake, alert and oriented x3. Cranial nerves 2 through 12 are grossly intact. Results - Laboratory Findings CBC and BMP: 08/31/17 05:24 08/31/17 08:35 ABG ABG pH 7.21 (7.35-7.45) L 08/30/17 11:34 ABG pCO2 26 mmHg (35-45) L 08/30/17 11:34 ABG pO2 98 mmHg (83-108) 08/30/17 11:34 ABG O2 Saturation 98.3 % (94-97) H 08/30/17 11:34 Abnormal lab findings: Abnormal Labs 08/29/17 08/29/17 08/29/17 22:15 22:15 22:22 WBC 12.9 H RBC 5.87 H Hgb 17.6 H Hct 51.8 H Neutrophils # 11.2 H Lymphocytes # ABG pH ABG pCO2 ABG HCO3 ABG Total CO2 ABG O2 Saturation VBG pH VBG pCO2 VBG HCO3 Sodium Potassium Chloride Carbon Dioxide 6 L* Glucose 165 H POC Glucose (mg/dL) 157 H Hemoglobin A1c Calcium 10.5 H Phosphorus Albumin 5.4 H Urine Protein Urine Glucose (UA) Urine Ketones Urine Blood Urine Mucus 08/29/17 08/29/17 08/29/17 22:35 23:23 23:42 WBC RBC Hgb Hct Neutrophils # Lymphocytes # ABG pH ABG pCO2 ABG HCO3 ABG Total CO2 ABG O2 Saturation VBG pH 7.13 L* 7.04 L* VBG pCO2 18 L* 25 L VBG HCO3 6 L* 7 L* Sodium Potassium Chloride Carbon Dioxide Glucose POC Glucose (mg/dL) Hemoglobin A1c Calcium Phosphorus Albumin Urine Protein 1+ H Urine Glucose (UA) 4+ H Urine Ketones 4+ H Urine Blood Trace H Urine Mucus Rare H 08/30/17 08/30/17 08/30/17 01:56 02:37 04:00 WBC 10.7 H RBC Hgb Hct Neutrophils # 9.6 H Lymphocytes # 0.6 L ABG pH ABG pCO2 ABG HCO3 ABG Total CO2 ABG O2 Saturation VBG pH VBG pCO2 VBG HCO3 Sodium Potassium Chloride Carbon Dioxide Glucose POC Glucose (mg/dL) 140 H 118 H Hemoglobin A1c Calcium Phosphorus Albumin Urine Protein Urine Glucose (UA) Urine Ketones Urine Blood Urine Mucus 08/30/17 08/30/17 08/30/17 04:03 04:03 04:07 WBC RBC Hgb Hct Neutrophils # Lymphocytes # ABG pH ABG pCO2 ABG HCO3 ABG Total CO2 ABG O2 Saturation VBG pH VBG pCO2 VBG HCO3 Sodium Potassium Chloride 111 H Carbon Dioxide 7 L* Glucose 108 H POC Glucose (mg/dL) 103 H Hemoglobin A1c 6.5 H Calcium Phosphorus Albumin Urine Protein Urine Glucose (UA) Urine Ketones Urine Blood Urine Mucus 08/30/17 08/30/17 08/30/17 04:20 05:00 06:00 WBC RBC Hgb Hct Neutrophils # Lymphocytes # ABG pH 7.07 L* ABG pCO2 23 L ABG HCO3 7 L* ABG Total CO2 7 L ABG O2 Saturation VBG pH VBG pCO2 VBG HCO3 Sodium Potassium Chloride Carbon Dioxide Glucose POC Glucose (mg/dL) 104 H 108 H Hemoglobin A1c Calcium Phosphorus Albumin Urine Protein Urine Glucose (UA) Urine Ketones Urine Blood Urine Mucus 08/30/17 08/30/17 08/30/17 08:06 08:30 09:03 WBC RBC Hgb Hct Neutrophils # Lymphocytes # ABG pH ABG pCO2 ABG HCO3 ABG Total CO2 ABG O2 Saturation VBG pH VBG pCO2 VBG HCO3 Sodium 136 L Potassium Chloride Carbon Dioxide 8 L* Glucose 132 H POC Glucose (mg/dL) 115 H 126 H Hemoglobin A1c Calcium Phosphorus 1.9 L Albumin Urine Protein Urine Glucose (UA) Urine Ketones Urine Blood Urine Mucus 08/30/17 08/30/17 08/30/17 10:08 11:15 11:34 WBC RBC Hgb Hct Neutrophils # Lymphocytes # ABG pH 7.21 L ABG pCO2 26 L ABG HCO3 10 L* ABG Total CO2 11 L ABG O2 Saturation 98.3 H VBG pH VBG pCO2 VBG HCO3 Sodium Potassium Chloride Carbon Dioxide Glucose POC Glucose (mg/dL) 112 H 114 H Hemoglobin A1c Calcium Phosphorus Albumin Urine Protein Urine Glucose (UA) Urine Ketones Urine Blood Urine Mucus 08/30/17 08/30/17 08/30/17 12:02 12:49 13:02 WBC RBC Hgb Hct Neutrophils # Lymphocytes # ABG pH ABG pCO2 ABG HCO3 ABG Total CO2 ABG O2 Saturation VBG pH VBG pCO2 VBG HCO3 Sodium 136 L Potassium Chloride Carbon Dioxide 11 L Glucose 172 H POC Glucose (mg/dL) 116 H 169 H Hemoglobin A1c Calcium 8.3 L Phosphorus Albumin Urine Protein Urine Glucose (UA) Urine Ketones Urine Blood Urine Mucus 08/30/17 08/30/17 08/30/17 14:01 15:16 16:07 WBC RBC Hgb Hct Neutrophils # Lymphocytes # ABG pH ABG pCO2 ABG HCO3 ABG Total CO2 ABG O2 Saturation VBG pH VBG pCO2 VBG HCO3 Sodium Potassium Chloride Carbon Dioxide Glucose POC Glucose (mg/dL) 178 H 140 H 133 H Hemoglobin A1c Calcium Phosphorus Albumin Urine Protein Urine Glucose (UA) Urine Ketones Urine Blood Urine Mucus 08/30/17 08/30/17 08/30/17 16:19 17:08 18:11 WBC RBC Hgb Hct Neutrophils # Lymphocytes # ABG pH ABG pCO2 ABG HCO3 ABG Total CO2 ABG O2 Saturation VBG pH VBG pCO2 VBG HCO3 Sodium Potassium Chloride Carbon Dioxide 14 L Glucose 138 H POC Glucose (mg/dL) 146 H 205 H Hemoglobin A1c Calcium Phosphorus Albumin Urine Protein Urine Glucose (UA) Urine Ketones Urine Blood Urine Mucus 08/30/17 08/30/17 08/30/17 19:09 20:09 20:32 WBC RBC Hgb Hct Neutrophils # Lymphocytes # ABG pH ABG pCO2 ABG HCO3 ABG Total CO2 ABG O2 Saturation VBG pH VBG pCO2 VBG HCO3 Sodium 136 L Potassium Chloride Carbon Dioxide 17 L Glucose 167 H POC Glucose (mg/dL) 209 H 199 H Hemoglobin A1c Calcium Phosphorus Albumin Urine Protein Urine Glucose (UA) Urine Ketones Urine Blood Urine Mucus 08/30/17 08/30/17 08/30/17 21:08 22:03 23:07 WBC RBC Hgb Hct Neutrophils # Lymphocytes # ABG pH ABG pCO2 ABG HCO3 ABG Total CO2 ABG O2 Saturation VBG pH VBG pCO2 VBG HCO3 Sodium Potassium Chloride Carbon Dioxide Glucose POC Glucose (mg/dL) 161 H 148 H 158 H Hemoglobin A1c Calcium Phosphorus Albumin Urine Protein Urine Glucose (UA) Urine Ketones Urine Blood Urine Mucus 08/31/17 08/31/17 08/31/17 00:08 00:55 00:59 WBC RBC Hgb Hct Neutrophils # Lymphocytes # ABG pH ABG pCO2 ABG HCO3 ABG Total CO2 ABG O2 Saturation VBG pH VBG pCO2 VBG HCO3 Sodium Potassium 3.3 L Chloride Carbon Dioxide 16 L Glucose 171 H POC Glucose (mg/dL) 172 H 177 H Hemoglobin A1c Calcium Phosphorus Albumin Urine Protein Urine Glucose (UA) Urine Ketones Urine Blood Urine Mucus 08/31/17 08/31/17 08/31/17 02:12 03:04 04:09 WBC RBC Hgb Hct Neutrophils # Lymphocytes # ABG pH ABG pCO2 ABG HCO3 ABG Total CO2 ABG O2 Saturation VBG pH VBG pCO2 VBG HCO3 Sodium Potassium Chloride Carbon Dioxide Glucose POC Glucose (mg/dL) 177 H 179 H 176 H Hemoglobin A1c Calcium Phosphorus Albumin Urine Protein Urine Glucose (UA) Urine Ketones Urine Blood Urine Mucus 08/31/17 08/31/17 08/31/17 04:12 05:03 06:16 WBC RBC Hgb Hct Neutrophils # Lymphocytes # ABG pH ABG pCO2 ABG HCO3 ABG Total CO2 ABG O2 Saturation VBG pH VBG pCO2 VBG HCO3 Sodium 136 L Potassium Chloride Carbon Dioxide 13 L Glucose 176 H POC Glucose (mg/dL) 168 H 216 H Hemoglobin A1c Calcium Phosphorus Albumin Urine Protein Urine Glucose (UA) Urine Ketones Urine Blood Urine Mucus 08/31/17 08/31/17 08/31/17 06:57 08:12 08:35 WBC RBC Hgb Hct Neutrophils # Lymphocytes # ABG pH ABG pCO2 ABG HCO3 ABG Total CO2 ABG O2 Saturation VBG pH VBG pCO2 VBG HCO3 Sodium Potassium 3.4 L Chloride Carbon Dioxide 20 L Glucose 180 H POC Glucose (mg/dL) 170 H 187 H Hemoglobin A1c Calcium Phosphorus Albumin Urine Protein Urine Glucose (UA) Urine Ketones Urine Blood Urine Mucus 08/31/17 08/31/17 08/31/17 08:58 09:54 11:01 WBC RBC Hgb Hct Neutrophils # Lymphocytes # ABG pH ABG pCO2 ABG HCO3 ABG Total CO2 ABG O2 Saturation VBG pH VBG pCO2 VBG HCO3 Sodium Potassium Chloride Carbon Dioxide Glucose POC Glucose (mg/dL) 182 H 182 H 163 H Hemoglobin A1c Calcium Phosphorus Albumin Urine Protein Urine Glucose (UA) Urine Ketones Urine Blood Urine Mucus 08/31/17 12:40 WBC RBC Hgb Hct Neutrophils # Lymphocytes # ABG pH ABG pCO2 ABG HCO3 ABG Total CO2 ABG O2 Saturation VBG pH VBG pCO2 VBG HCO3 Sodium Potassium Chloride Carbon Dioxide Glucose POC Glucose (mg/dL) 132 H Hemoglobin A1c Calcium Phosphorus Albumin Urine Protein Urine Glucose (UA) Urine Ketones Urine Blood Urine Mucus Assessment and Plan Assessment: Acute diabetic ketoacidosis Severe profound metabolic acidosis related to above Uncontrolled type 2 diabetes mellitus Colorectal cancer Severe morbid obesity and prior history of lap band surgery Electrolyte imbalance Dyslipidemia Plan: Short term bicarb drip Aggressive fluid resuscitation Insulin drip Close monitoring of sugar ICU admit DVT and peptic ulcer disease prophylaxis Further recommendations pending plan of care as per clinical response of the patient Time with Patient: Greater than 30
--- NOTE | 2017-08-31 14:15 | P.PN ---
Subjective Progress Note Date: 08/31/17 Principal diagnosis: Acute diabetic ketoacidosis, severe profound metabolic acidosis, uncontrolled type 2 diabetes mellitus, colorectal cancer, status post colostomy, severe morbid obesity, history of (surgery, electrolyte imbalance, dyslipidemia severe morbid obesity 09/10/2017, patient seen eval examined during the rounds clinically doing much better patient has been tolerating by mouth well sugar remains marginal patient is on very small amount of insulin drips she flowsheet for detail which is being discontinued had D5 200 mL an hour followed by D10 earlier this morning, labs reviewed medications reviewed care plan discussed with the patient as well as the staff at length once anion gap remains stable likely will be transferred out of the ICU to stepdown unit, will resume patient's baseline insulin from home 52-year-old female who was seen eval examined in the ICU this patient has been admitted into the hospital with the nausea and not feeling well generalized weakness long with palpitation, patient history significant for insulin- dependent diabetes mellitus and lately she has been on insulin as a sole therapy for her advance diabetes she also has a history of colon cancer requiring colostomy, about 2 weeks ago patient stopped taking any carbs or sugar related product and also stopped insulin as well patient presented into the hospital with one week history of slow progressive confusion and weakness and palpitation intermittent which become more persistent in the evaluation today in the emergency department was found to have severe degree of diabetic ketoacidosis, with not very high sugar levels. Patient denies any seizure activity loss of consciousness) also denies any chest pain or radiation of pain denies any shortness of breath cough or sputum production denies any nausea vomiting or diarrhea but however lately intermittent episodes of nausea has been present which are more consistent, denies any bowel or bladder related problems except as noted above She is normally on Levemir 50 units at bedtime and NovoLog 10-18 units with each meal during the day. Patient then developed headache, nausea and palpitations and when she developed palpitations, she decided she needed to come in to the hospital for evaluation. Patient was found to have a CO2 of 6, blood sugar 165, white count 12.9 and hemoglobin 17.6. Troponin was negative. Venous blood gas showed a pH of 7.13, pCO2 18 and bicarb 6. Lactic acid was 0.9. Urinalysis was clear with nitrate and leukoesterase negative. Urine drug screen was negative Objective - Vital Signs Vital signs: Vital Signs Temp 98.6 F 08/31/17 12:00 Pulse 92 08/31/17 13:00 Resp 17 08/31/17 13:00 BP 122/66 08/31/17 13:00 Pulse Ox 98 08/31/17 13:00 Intake & Output 08/30/17 08/31/17 08/31/17 18:59 06:59 18:59 Intake Total 3633.072 2400.146 1160.182 Output Total 3500 6400 1550 Balance 133.072 -3999.854 -389.818 Weight 94 kg 91 kg Intake: IV 625 2200 400 Dextrose 10% in Water 500 200 ml In Empty Bag 1 bag @ 100 mls/hr IV .Q5H AYAN Rx #:[id number] Dextrose 5% in Water 1, 625 2200 200 000 ml @ 125 mls/hr IV . Q8H48M AYAN with Sodium Bicarb (1 Meq/ml) 100 ml Rx#:[id number] Intake, IV Titration 1908.072 200.146 400.182 Amount Dextrose 5% in Water 1, 1400 200 400 000 ml @ 200 mls/hr IV . Q5H AYAN Rx#:[id number] Insulin Regular 100 unit 7.112 In Sodium Chloride 0.9% 100 ml @ 0.1 UNITS/KG/HR 9.39 mls/hr IV .[id number] AYAN Rx#:[id number] Insulin Regular 100 unit 0.960 0.146 0.182 In Sodium Chloride 0.9% 100 ml @ 0.1 UNITS/KG/HR 9.49 mls/hr IV .[id number] AYAN Rx#:[id number] Sodium Phosphate 10 mmol 500 In Sodium Chloride 0.9% 250 ml @ 125 mls/hr IVPB Q2H AYAN Rx#:[id number] Oral 1100 360 Output: Urine 3250 5900 1550 Stool 250 500 Other: Voiding Method Toilet Toilet Toilet # Voids 1 0 - Exam Gen: This is a obese 52-year-old female. She is resting in ICU bed appears to be comfortable and in no acute distress. HEENT: Head is atraumatic, normocephalic. Pupils equal, round. Sclerae is anicteric. NECK: Supple. No JVD. No lymphadenopathy. No thyromegaly. LUNGS: Clear to auscultation. No wheezes or rhonchi. No intercostal retractions. HEART: Regular rate and rhythm. No murmur. ABDOMEN: Obese. Soft. Bowel sounds are present. No masses. No tenderness. Colostomy on the left side with gas and round stool. EXTREMITIES: No pedal edema. No calf tenderness. Dorsalis pedis +2 bilaterally. NEUROLOGICAL: Patient is awake, alert and oriented x3. Cranial nerves 2 through 12 are grossly intact. - Labs CBC & Chem 7: 08/31/17 05:24 08/31/17 08:35 Labs: Abnormal Lab Results - Last 24 Hours (Table) 08/30/17 08/30/17 08/30/17 Range/Units 04:03 15:16 16:07 Sodium (137-145) mmol/L Potassium (3.5-5.1) mmol/L Carbon Dioxide (22-30) mmol/L Glucose (74-99) mg/dL POC Glucose (mg/dL) 140 H 133 H (75-99) mg/dL Hemoglobin A1c 6.5 H (4.0-6.0) % 08/30/17 08/30/17 08/30/17 Range/Units 16:19 17:08 18:11 Sodium (137-145) mmol/L Potassium (3.5-5.1) mmol/L Carbon Dioxide 14 L (22-30) mmol/L Glucose 138 H (74-99) mg/dL POC Glucose (mg/dL) 146 H 205 H (75-99) mg/dL Hemoglobin A1c (4.0-6.0) % 08/30/17 08/30/17 08/30/17 Range/Units 19:09 20:09 20:32 Sodium 136 L (137-145) mmol/L Potassium (3.5-5.1) mmol/L Carbon Dioxide 17 L (22-30) mmol/L Glucose 167 H (74-99) mg/dL POC Glucose (mg/dL) 209 H 199 H (75-99) mg/dL Hemoglobin A1c (4.0-6.0) % 08/30/17 08/30/17 08/30/17 Range/Units 21:08 22:03 23:07 Sodium (137-145) mmol/L Potassium (3.5-5.1) mmol/L Carbon Dioxide (22-30) mmol/L Glucose (74-99) mg/dL POC Glucose (mg/dL) 161 H 148 H 158 H (75-99) mg/dL Hemoglobin A1c (4.0-6.0) % 08/31/17 08/31/17 08/31/17 Range/Units 00:08 00:55 00:59 Sodium (137-145) mmol/L Potassium 3.3 L (3.5-5.1) mmol/L Carbon Dioxide 16 L (22-30) mmol/L Glucose 171 H (74-99) mg/dL POC Glucose (mg/dL) 172 H 177 H (75-99) mg/dL Hemoglobin A1c (4.0-6.0) % 08/31/17 08/31/17 08/31/17 Range/Units 02:12 03:04 04:09 Sodium (137-145) mmol/L Potassium (3.5-5.1) mmol/L Carbon Dioxide (22-30) mmol/L Glucose (74-99) mg/dL POC Glucose (mg/dL) 177 H 179 H 176 H (75-99) mg/dL Hemoglobin A1c (4.0-6.0) % 08/31/17 08/31/17 08/31/17 Range/Units 04:12 05:03 06:16 Sodium 136 L (137-145) mmol/L Potassium (3.5-5.1) mmol/L Carbon Dioxide 13 L (22-30) mmol/L Glucose 176 H (74-99) mg/dL POC Glucose (mg/dL) 168 H 216 H (75-99) mg/dL Hemoglobin A1c (4.0-6.0) % 08/31/17 08/31/17 08/31/17 Range/Units 06:57 08:12 08:35 Sodium (137-145) mmol/L Potassium 3.4 L (3.5-5.1) mmol/L Carbon Dioxide 20 L (22-30) mmol/L Glucose 180 H (74-99) mg/dL POC Glucose (mg/dL) 170 H 187 H (75-99) mg/dL Hemoglobin A1c (4.0-6.0) % 08/31/17 08/31/17 08/31/17 Range/Units 08:58 09:54 11:01 Sodium (137-145) mmol/L Potassium (3.5-5.1) mmol/L Carbon Dioxide (22-30) mmol/L Glucose (74-99) mg/dL POC Glucose (mg/dL) 182 H 182 H 163 H (75-99) mg/dL Hemoglobin A1c (4.0-6.0) % 08/31/17 Range/Units 12:40 Sodium (137-145) mmol/L Potassium (3.5-5.1) mmol/L Carbon Dioxide (22-30) mmol/L Glucose (74-99) mg/dL POC Glucose (mg/dL) 132 H (75-99) mg/dL Hemoglobin A1c (4.0-6.0) % Assessment and Plan Assessment: Acute diabetic ketoacidosis Severe profound metabolic acidosis related to above Uncontrolled type 2 diabetes mellitus Colorectal cancer Severe morbid obesity and prior history of lap band surgery Electrolyte imbalance Dyslipidemia Plan: Short term bicarb drip, his been discontinued we'll observe off of it Aggressive fluid resuscitation, we'll lower down the IV fluids to D5 50 mL an hour, DC D10 Insulin drip to be discontinued Close monitoring of sugar Advance diet as tolerated Can be moved out of the ICU to stepdown unit DVT and peptic ulcer disease prophylaxis Further recommendations pending plan of care as per clinical response of the patient Time with Patient: Greater than 30
[2017-08-31 16:28] LABS: Anion Gap 12 mmol/L; Blood Urea Nitrogen 9 mg/dL (7-17); Calcium 8.9 mg/dL (8.4-10.2); Carbon Dioxide 22 mmol/L (22-30); Chloride 105 mmol/L (98-107); Glucose 141 mg/dL (74-99); Magnesium 1.9 mg/dL (1.6-2.3); Phosphorus 1.3 mg/dL (2.5-4.5); Potassium 3.6 mmol/L (3.5-5.1); Sodium 139 mmol/L (137-145)
[2017-08-31] MEDS: POTASSIUM PHOSPHATE 10 MMOL in SODIUM CHLORIDE 0.9% 250 ML IV SCH ×2 (17:12→20:07)
[2017-08-31 17:22] LABS: Glucose,Whole Blood 181 mg/dL (75-99)
[2017-08-31] MEDS: ATORVASTATIN 10 MG TAB PO SCH (20:11)
[2017-08-31 20:12] LABS: Glucose,Whole Blood 90 mg/dL (75-99)
[2017-08-31] MEDS ORDERED: INSULIN DETEMIR 100 UNIT/ML 10 ML VIAL SQ SCH (21:00)
[2017-08-31 21:06] VITALS: RESP 16
[2017-09-01] MEDS: HEPARIN SODIUM,PORCINE 5,000 UNIT/ML 1 ML VIAL SQ SCH ×2 (01:33→08:53)
[2017-09-01 07:17] VITALS: BP 111/73; PULSE 73; TEMP 97.9
[2017-09-01] MEDS: INSULIN ASPART 100 UNIT/ML 1 ML 10 ML VIAL SQ SCH ×2 (07:23→11:42)
[2017-09-01 07:24] LABS: Glucose,Whole Blood 89 mg/dL (75-99)
[2017-09-01 07:33] LABS: Basophils % (A) 0 %; Eosinophils # (A) 0.2 k/uL (0-0.7); Eosinophils % (A) 8 %; HCT 38.7 % (34.0-46.0); HGB 13.5 gm/dL (11.4-16.0); Lymphocytes % (A) 32 %; MCH 29.9 pg (25.0-35.0); MCV 85.6 fL (80.0-100.0); Mean Platelet Volume 6.3; Monocytes # (A) 0.2 k/uL (0-1.0); Monocytes % (A) 5 %; Neutrophils # (A) 1.6 k/uL (1.3-7.7); Neutrophils % (A) 52 %; Platelet Count 159 k/uL (150-450); RBC 4.53 m/uL (3.80-5.40); RDW 14.7 % (11.5-15.5)
[2017-09-01 07:57] LABS: ALT 34 U/L (9-52); AST 15 U/L (14-36); Albumin 3.3 g/dL (3.5-5.0); Alkaline Phosphatase 49 U/L (38-126); Anion Gap 9 mmol/L; Blood Urea Nitrogen 9 mg/dL (7-17); Carbon Dioxide 28 mmol/L (22-30); Chloride 106 mmol/L (98-107); Glucose 79 mg/dL (74-99); Phosphorus 2.5 mg/dL (2.5-4.5); Potassium 3.5 mmol/L (3.5-5.1); Sodium 143 mmol/L (137-145); Total Bilirubin 0.4 mg/dL (0.2-1.3); Total Protein 5.4 g/dL (6.3-8.2)
[2017-09-01] MEDS: PANTOPRAZOLE 40 MG/10 ML VIAL IV SCH (08:52)
[2017-09-01] MEDS: LISINOPRIL 2.5 MG TAB PO SCH (08:53)
[2017-09-01] MEDS: cycloSPORINE 0.05% OPHTH 0.4 ML DROPERETTE BOTH EYES SCH (08:53)
--- NOTE | 2017-09-01 11:18 | P.PN ---
Subjective Progress Note Date: 09/01/17 Principal diagnosis: Acute diabetic ketoacidosis, severe profound metabolic acidosis, uncontrolled type 2 diabetes mellitus, colorectal cancer, status post colostomy, severe morbid obesity, history of (surgery, electrolyte imbalance, dyslipidemia severe morbid obesity 09/01/2017, patient seen eval examined during the rounds clinically has been doing well, tolerating well patient has been resumed on home insulin regime, patient denies any nausea vomiting or abdominal pain, care plan discussed with the patient at length x-ray finding reviewed as well also reviewed patient about sleep disorder breathing and sleep apnea issues and relationship with diabetes 08/31/2017, patient seen eval examined during the rounds clinically doing much better patient has been tolerating by mouth well sugar remains marginal patient is on very small amount of insulin drips she flowsheet for detail which is being discontinued had D5 200 mL an hour followed by D10 earlier this morning, labs reviewed medications reviewed care plan discussed with the patient as well as the staff at length once anion gap remains stable likely will be transferred out of the ICU to stepdown unit, will resume patient's baseline insulin from home 52-year-old female who was seen eval examined in the ICU this patient has been admitted into the hospital with the nausea and not feeling well generalized weakness long with palpitation, patient history significant for insulin- dependent diabetes mellitus and lately she has been on insulin as a sole therapy for her advance diabetes she also has a history of colon cancer requiring colostomy, about 2 weeks ago patient stopped taking any carbs or sugar related product and also stopped insulin as well patient presented into the hospital with one week history of slow progressive confusion and weakness and palpitation intermittent which become more persistent in the evaluation today in the emergency department was found to have severe degree of diabetic ketoacidosis, with not very high sugar levels. Patient denies any seizure activity loss of consciousness) also denies any chest pain or radiation of pain denies any shortness of breath cough or sputum production denies any nausea vomiting or diarrhea but however lately intermittent episodes of nausea has been present which are more consistent, denies any bowel or bladder related problems except as noted above She is normally on Levemir 50 units at bedtime and NovoLog 10-18 units with each meal during the day. Patient then developed headache, nausea and palpitations and when she developed palpitations, she decided she needed to come in to the hospital for evaluation. Patient was found to have a CO2 of 6, blood sugar 165, white count 12.9 and hemoglobin 17.6. Troponin was negative. Venous blood gas showed a pH of 7.13, pCO2 18 and bicarb 6. Lactic acid was 0.9. Urinalysis was clear with nitrate and leukoesterase negative. Urine drug screen was negative Objective - Vital Signs Vital signs: Vital Signs Temp 97.9 F 09/01/17 07:15 Pulse 73 09/01/17 07:15 Resp 16 09/01/17 07:17 BP 111/73 09/01/17 07:15 Pulse Ox 97 09/01/17 07:15 Intake & Output 08/31/17 09/01/17 09/01/17 18:59 06:59 18:59 Intake Total 1770.182 Output Total 2201 Balance -430.818 Intake: IV 400 Dextrose 10% in Water 500 200 ml In Empty Bag 1 bag @ 100 mls/hr IV .Q5H AYAN Rx #:[id number] Dextrose 5% in Water 1, 200 000 ml @ 125 mls/hr IV . Q8H48M AYAN with Sodium Bicarb (1 Meq/ml) 100 ml Rx#:[id number] Intake, IV Titration 650.182 Amount Dextrose 5% in Water 1, 400 000 ml @ 200 mls/hr IV . Q5H AYAN Rx#:[id number] Insulin Regular 100 unit 0.182 In Sodium Chloride 0.9% 100 ml @ 0.1 UNITS/KG/HR 9.49 mls/hr IV .[id number] AYAN Rx#:[id number] Potassium Phosphate 10 250 mmol In Sodium Chloride 0 .9% 250 ml @ 125 mls/hr IV Q2H AYAN Rx#:[id number] Oral 360 Tube Feeding 360 Output: Urine 2200 Stool 1 Other: Voiding Method Toilet Toilet Toilet # Voids 0 2 1 # Bowel Movements 1 - Exam Gen: This is a obese 52-year-old female. She is resting in ICU bed appears to be comfortable and in no acute distress. HEENT: Head is atraumatic, normocephalic. Pupils equal, round. Sclerae is anicteric. NECK: Supple. No JVD. No lymphadenopathy. No thyromegaly. LUNGS: Clear to auscultation. No wheezes or rhonchi. No intercostal retractions. HEART: Regular rate and rhythm. No murmur. ABDOMEN: Obese. Soft. Bowel sounds are present. No masses. No tenderness. Colostomy on the left side with gas and round stool. EXTREMITIES: No pedal edema. No calf tenderness. Dorsalis pedis +2 bilaterally. NEUROLOGICAL: Patient is awake, alert and oriented x3. Cranial nerves 2 through 12 are grossly intact. - Labs CBC & Chem 7: 09/01/17 07:00 09/01/17 07:00 Labs: Abnormal Lab Results - Last 24 Hours (Table) 08/31/17 08/31/17 08/31/17 Range/Units 12:40 15:59 15:59 WBC (3.8-10.6) k/uL Glucose 141 H (74-99) mg/dL POC Glucose (mg/dL) 132 H (75-99) mg/dL Phosphorus 1.3 L (2.5-4.5) mg/dL Total Protein (6.3-8.2) g/dL Albumin (3.5-5.0) g/dL 08/31/17 09/01/17 09/01/17 Range/Units 17:20 07:00 07:00 WBC 3.0 L (3.8-10.6) k/uL Glucose (74-99) mg/dL POC Glucose (mg/dL) 181 H (75-99) mg/dL Phosphorus (2.5-4.5) mg/dL Total Protein 5.4 L (6.3-8.2) g/dL Albumin 3.3 L (3.5-5.0) g/dL Assessment and Plan Assessment: Acute diabetic ketoacidosis Severe profound metabolic acidosis related to above Uncontrolled type 2 diabetes mellitus Colorectal cancer Likely sleep disorder breathing and sleep apnea Severe morbid obesity and prior history of lap band surgery Electrolyte imbalance Dyslipidemia Plan: Patient is back on her insulin regime Close monitoring of sugar Advance diet as tolerated Can be discharged from pulmonary standpoint Follow-up in outpatient setting for evaluation of sleep disorder breathing and sleep apnea DVT and peptic ulcer disease prophylaxis Further recommendations pending plan of care as per clinical response of the patient Time with Patient: Greater than 30
[2017-09-01 11:40] LABS: Glucose,Whole Blood 83 mg/dL (75-99)
--- NOTE | 2017-09-01 14:20 | P.DS ---
Providers Date of admission: 08/30/17 01:38 Attending physician: Maryjane Bautista Consults: 08/30/17 02:03 Consult Physician Stat Consulting Provider: Braydon Davis Consult Reason/Comments: metabolic acidosis, respiratory acidosis Do you want consulting provider notified?: Already Contacted 08/30/17 10:27 Consult Physician Routine Consulting Provider: Ledy Jacques Consult Reason/Comments: metabolic acidosis Do you want consulting provider notified?: Yes Primary care physician: John Zafar [place] [facility] Course: This is 52 years old female who presented to the emergency department with nausea vomiting and abdominal pain patient was found to have DKA admitted to the intensive care unit and was started on insulin drip patient stabilized from the medical standpoint and her glucose was ranging between 100-150 at the time of the discharge etiology felt to be related to noncompliance with her medication and patient counseled regarding medication adherence and close follow -up with her primary care physician patient was discharged in a stable condition to follow up with her primary care physician within 3 days from discharge Patient Condition at Discharge: Fair Plan - Discharge Summary Discharge Rx Participant: Yes New Discharge Prescriptions: No Action Insulin Aspart [NovoLOG] See Protocol SQ TID Simvastatin [Zocor] 10 mg PO HS Lisinopril [Zestril] 2.5 mg PO DAILY Insulin Detemir [Levemir] 50 unit SQ HS Canagliflozin [Invokana] 100 mg PO DAILY Albuterol Inhaler [Ventolin Hfa Inhaler] 1 - 2 puff INHALATION RT-Q6H PRN PRN Reason: Cough cycloSPORINE [Restasis] 1 drop BOTH EYES BID Discharge Medication List Insulin Aspart [NovoLOG] See Protocol SQ TID 06/19/16 [History] Simvastatin [Zocor] 10 mg PO HS 06/19/16 [History] Albuterol Inhaler [Ventolin Hfa Inhaler] 1 - 2 puff INHALATION RT-Q6H PRN [History] Canagliflozin [Invokana] 100 mg PO DAILY 08/29/17 [History] Insulin Detemir [Levemir] 50 unit SQ HS 08/29/17 [History] Lisinopril [Zestril] 2.5 mg PO DAILY 08/29/17 [History] cycloSPORINE [Restasis] 1 drop BOTH EYES BID 08/30/17 [History] Follow up Appointment(s)/Referral(s): Asael Arteaga MD [REFERRING] - 1 Week John Wells MD [Primary Care Provider] - 1 Week Braydon Davis MD [STAFF PHYSICIAN] - 1 Week Discharge Disposition: HOME SELF-CARE
[2017-09-02] MEDS ORDERED: PANTOPRAZOLE 40 MG TABLET PO SCH (07:30)
== END 2017-09-01 14:39 | disposition home or self-care (01) | DRG 639 ==
LOC: EC 21:38 → 6ICU 08-30 01:38 → 3SUR 08-31 21:05
PROVIDERS: ADMIT Family Medicine; ATTEND Family Medicine
PROC: 3E0234Z Introduction of Serum, Toxoid and Vaccine into Muscle, Percutaneous Approach (ICD-10-PCS; principal; 2017-08-30)
DX: E11.10 Type 2 diabetes mellitus with ketoacidosis without coma (principal); E83.39 Other disorders of phosphorus metabolism; E87.6 Hypokalemia; I10 Essential (primary) hypertension; G47.30 Sleep apnea, unspecified; E78.5 Hyperlipidemia, unspecified; Z91.14 Patient's other noncompliance with medication regimen; Z23 Encounter for immunization; Z68.34 Body mass index [BMI] 34.0-34.9, adult; Z71.3 Dietary counseling and surveillance; Z79.4 Long term (current) use of insulin; Z79.899 Other long term (current) drug therapy; Z85.048 Personal history of other malignant neoplasm of rectum, rectosigmoid junction, and anus; Z86.14 Personal history of Methicillin resistant Staphylococcus aureus infection; Z93.3 Colostomy status; Z90.49 Acquired absence of other specified parts of digestive tract; Z92.21 Personal history of antineoplastic chemotherapy; Z92.3 Personal history of irradiation; Z98.84 Bariatric surgery status; E66.01 Morbid (severe) obesity due to excess calories; Z88.0 Allergy status to penicillin; Z91.048 Other nonmedicinal substance allergy status; Z80.49 Family history of malignant neoplasm of other genital organs; Z82.49 Family history of ischemic heart disease and other diseases of the circulatory system; Z83.3 Family history of diabetes mellitus; Z84.1 Family history of disorders of kidney and ureter
CPT/HCPCS: 36415; 36600; 71046; 74018; 80048; 80051; 80053; 80306; 81001; 82150; 82565; 82803; 82805; 82947; 83036; 83605; 83690; 83735; 84100; 84484; 84520; 85025; 90732; 93005; 96361; 96374; 99291

== ENCOUNTER → 2018-05-12 | Outpatient (CLI) | payer OTHER ==
--- NOTE | 2018-05-13 13:04 | MM ---
Reason for exam: screening (asymptomatic). Last mammogram was performed 1 year and 2 months ago. History: Patient is postmenopausal, has history of colon cancer at age 47, history of other cancer, and is nulliparous. Physical Findings: A clinical breast exam by your physician is recommended on an annual basis and results should be correlated with mammographic findings. MG Screening Mammo w CAD Bilateral CC and MLO view(s) were taken. Prior study comparison: March 20, 2017, bilateral MG screening mammo w CAD. February 28, 2016, bilateral MG screening mammo w CAD. The breast tissue is almost entirely fat. No significant changes when compared with prior studies. ASSESSMENT: Negative, BI-RAD 1 RECOMMENDATION: Routine screening mammogram of both breasts in 1 year.
== END | disposition home or self-care (01) ==
LOC: RADMAMWWP 16:29
PROVIDERS: ATTEND Obstetrics & Gynecology
DX: Z12.31 Encounter for screening mammogram for malignant neoplasm of breast (principal)
CPT/HCPCS: 77067

== ENCOUNTER 2019-03-05 11:11 | Day surgery (SDC) | payer OTHER ==
[2019-03-03 10:37] VITALS: BMI 36.0
[~2019-03-05 11:11] MED LIST: LACTATED RINGERS 1,000 ML IV SCH
[2019-03-05 11:38] VITALS: TEMP 98
[2019-03-05] MEDS ORDERED: LIDOCAINE 1% 20 ML VIAL (10MG/ML) FOR IV START INTRADERMA ONE (11:54)
--- NOTE | 2019-03-05 12:27 | P.GSHP ---
History of Present Illness H&P Date: 03/05/19 Chief Complaint: rectal cancer 54-year-old female known to our service. Here today for colonoscopy. No bowel related complaints. History of prior rectal cancer. Underwent abdominal perineal resection. Known peristomal hernia. Here for routine follow-up. Last colonoscopy 3 years ago. Polyps found at that time. Past Medical History Past Medical History: Cancer, Diabetes Mellitus, Hypertension Additional Past Medical History / Comment(s): colorectal CA status post chemotherapy and radiation prior to surgery will, status post bowel resection and colostomy placement followed by 6 months of chemotherapy completed in History of Any Multi-Drug Resistant Organisms: MRSA Date of last positivie culture/infection: 2011 MDRO Source:: abdominal wound Past Surgical History: Bariatric Surgery, Bowel Resection Additional Past Surgical History / Comment(s): Bowel resection and colostomy followed by reconstruction and closure of the anal opening, lap band surgery 2005, colonoscopy Past Anesthesia/Blood Transfusion Reactions: No Reported Reaction Smoking Status: Never smoker - Past Family History Mother Family Medical History: Cancer Additional Family Medical History / Comment(s): Mother at age 62 from vulva cancer Father Family Medical History: Coronary Artery Disease (CAD), Diabetes Mellitus, Renal Disease Additional Family Medical History / Comment(s): Father at age 72 from heart failure with history of kidney disease secondary to diabetes. Sister(s) Additional Family Medical History / Comment(s): Patient has 3 sisters and one has diabetes. Patient does not have any brothers. Medications and Allergies Home Medications Medication Instructions Recorded Confirmed Type INSULIN ASPART (NovoLOG) [NovoLOG] See Protocol SQ TID 06/19/16 03/05/19 History Simvastatin [Zocor] 10 mg PO HS 06/19/16 03/05/19 History Albuterol Inhaler [Ventolin Hfa 1 - 2 puff INHALATION RT-Q6H PRN 08/29/17 03/03/19 History Inhaler] Insulin Detemir (Levemir) [Levemir] 50 unit SQ HS 08/29/17 03/05/19 History Lisinopril [Zestril] 2.5 mg PO DAILY 08/29/17 03/05/19 History cycloSPORINE [Restasis] 1 drop BOTH EYES BID 08/30/17 03/05/19 History Empagliflozin [Jardiance] 25 mg PO DAILY 03/03/19 03/05/19 History Mirabegron [Myrbetriq] 1 tab PO DAILY 03/05/19 03/05/19 History Allergies Allergy/AdvReac Type Severity Reaction Status Date / Time adhesive tape Allergy Rash/Hives Verified 03/05/19 11:58 amoxicillin Allergy Rash/Hives Verified 03/05/19 11:58 Surgical - Exam Vital Signs Temp Pulse Resp BP Pulse Ox 98.0 F 79 16 139/66 97 03/05/19 11:34 03/05/19 11:34 03/05/19 11:34 03/05/19 11:34 03/05/19 11:34 Physical exam: General: Well-developed, well-nourished HEENT: Normocephalic, sclerae nonicteric Abdomen: Nontender, nondistended, peristomal left-sided hernia Extremities: No edema Neuro: Alert and oriented Assessment and Plan (1) Rectal cancer Narrative/Plan: Will proceed with colonoscopy through stoma Current Visit: Yes Status: Acute Code(s): C20 - MALIGNANT NEOPLASM OF RECTUM SNOMED Code(s): 757159039
--- NOTE | 2019-03-05 12:38 | P.PCN ---
Date of Procedure: 03/05/19 Procedure(s) Performed: PREOPERATIVE DIAGNOSIS: personal history of rectal cancer POSTOPERATIVE DIAGNOSIS: normal exam PROCEDURE: Colonoscopy ANESTHESIA: MAC SURGEON: Femi Manning M.D. SPECIMENS: none ENDOSCOPIC PROCEDURE: The patient was placed on the endoscopy table in the left decubitus position. The patient's perianal tissues were examined. Previous flap reconstruction of the proctectomy noted and well-healed. No open wounds or abnormalities present. The Olympus colonoscope was inserted into the ostomy and passed under direct visualization to the base of the cecum. The appendiceal orifice was visualized. From that point the scope was slowly withdrawn inspecting all surfaces carefully. There were no neoplastic inflammatory or polypoid lesions throughout the cecum, ascending, transverse, descending, and sigmoid colon. There was no visible diverticulosis. The patient was taken to the recovery room in stable condition per anesthesia guidelines. RECOMMENDATIONS: resume diet. Follow-up colonoscopy 3 years.
[2019-03-05 12:55] VITALS: BP 121/74; PULSE 87; RESP 18
== END 2019-03-05 13:09 | disposition home or self-care (01) ==
LOC: ORWHC2ENDO 11:11
PROVIDERS: ATTEND Surgery
DX: Z08 Encounter for follow-up examination after completed treatment for malignant neoplasm (principal); I10 Essential (primary) hypertension; E11.9 Type 2 diabetes mellitus without complications; E78.5 Hyperlipidemia, unspecified; Z92.21 Personal history of antineoplastic chemotherapy; Z92.3 Personal history of irradiation; Z90.49 Acquired absence of other specified parts of digestive tract; Z93.3 Colostomy status; Z86.14 Personal history of Methicillin resistant Staphylococcus aureus infection; Z98.84 Bariatric surgery status; Z98.890 Other specified postprocedural states; Z80.49 Family history of malignant neoplasm of other genital organs; Z82.49 Family history of ischemic heart disease and other diseases of the circulatory system; Z83.3 Family history of diabetes mellitus; Z84.1 Family history of disorders of kidney and ureter; Z79.4 Long term (current) use of insulin; Z79.899 Other long term (current) drug therapy; Z85.048 Personal history of other malignant neoplasm of rectum, rectosigmoid junction, and anus; Z88.0 Allergy status to penicillin; Z91.048 Other nonmedicinal substance allergy status
CPT/HCPCS: 44388; 44389

== ENCOUNTER → 2019-05-22 | Outpatient (CLI) | payer OTHER ==
--- NOTE | 2019-05-22 15:51 | BD ---
EXAMINATION TYPE: Axial Bone Density DATE OF EXAM: 05/22/2019 COMPARISON: NONE CLINICAL HISTORY: 54 YR OLD FEMALE....ICD-10 CODE: Z13.820 OSTEOPOROSIS SCREENING Height: 63.5 Weight: 206 FRAX RISK QUESTIONS: Secondary Osteoporosis: YES 1. Type 1 Diabetes: YES 3. Menopause before 45: AT 46 YRS OLD RISK FACTORS HISTORY OF: Postmenopausal woman: YES, AT 46 YRS OLD Hyperparathyroidism: NO Adrenal Insufficiency: NO MEDICATIONS: Additional Medications: BP MEDS, HX OF CHEMO AND RADIATION, INSULIN AND ORAL DIABETIC MEDS, STATIN FO R CHOLESTEROL, OTC CALCIUM WITH VIT D Additional History: COLON CA, 2012, HYPERTENSION, DIABETIC, CHOLESTEROL EXAM MEASUREMENTS: Bone mineral densitometry was performed using the [employer] System. Bone mineral density as measured about the Lumbar spine is: ----- L1-L4(G/cm2): 1.389 T Score Values are as follows: ----- L1: 2.2 ----- L2: 2.5 ----- L3: 0.8 ----- L4: 1.5 ----- L1-L4: 1.7 Bone mineral density has: Increased 2.6% SINCE..02.25.2015 Bone mineral density about the R hip (g/cm2): 0.940 Bone mineral density about the L hip (g/cm2): 1.003 T Score values are as follows: -----R Neck: -0.7 -----L Neck: -0.9 -----R Total: -0.5 -----L Total: 0.0 Bone mineral density has: Decreased -3.0% SINCE....02.25.2015 FRAX%s: THERE IS A 5.0% CHANCE FOR A MAJOR OSTEOPOROTIC FX AND A 0.2% FOR HIP....PROBABILITY FOR FX IN 10 YRS TIME IMPRESSION: Normal (Values between +1 and -1 indicate normal bone mass). Consider repeating this study in 5 year s or sooner if there is some new clinical indication. NOTE: T-SCORE=SD OF THE YOUNG ADULT MEAN.
--- NOTE | 2019-05-25 10:58 | MM ---
Reason for exam: screening (asymptomatic). Last mammogram was performed 1 year ago. History: Patient is postmenopausal, has history of colon cancer at age 47, history of other cancer, and is nulliparous. Took hormonal contraceptives for 8 years. Physical Findings: A clinical breast exam by your physician is recommended on an annual basis and results should be correlated with mammographic findings. MG Screening Mammo w CAD Bilateral CC and MLO view(s) were taken. Prior study comparison: May 12, 2018, bilateral MG screening mammo w CAD. March 20, 2017, bilateral MG screening mammo w CAD. There are scattered fibroglandular densities. There are benign appearing round linear calcifications bilaterally. There is no discrete abnormality. ASSESSMENT: Benign, BI-RAD 2 RECOMMENDATION: Routine screening mammogram of both breasts in 1 year.
== END | disposition home or self-care (01) ==
LOC: RADBDWWP 14:50
PROVIDERS: ATTEND Obstetrics & Gynecology
DX: Z12.31 Encounter for screening mammogram for malignant neoplasm of breast (principal); Z13.820 Encounter for screening for osteoporosis
CPT/HCPCS: 77067; 77080

== ENCOUNTER → 2020-06-03 | Outpatient (CLI) | payer OTHER ==
--- NOTE | 2020-06-06 11:33 | MM ---
Reason for exam: screening (asymptomatic). Last mammogram was performed 1 year ago. History: Patient is postmenopausal, has history of colon cancer at age 47, history of other cancer, and is nulliparous. Took hormonal contraceptives for 8 years. Physical Findings: A clinical breast exam by your physician is recommended on an annual basis and results should be correlated with mammographic findings. MG Screening Mammo w CAD Bilateral CC and MLO view(s) were taken. Prior study comparison: May 22, 2019, bilateral MG screening mammo w CAD. May 12, 2018, bilateral MG screening mammo w CAD. There are scattered fibroglandular densities. No significant changes when compared with prior studies. ASSESSMENT: Negative, BI-RAD 1 RECOMMENDATION: Routine screening mammogram of both breasts in 1 year.
== END | disposition home or self-care (01) ==
LOC: RADMAMWWP 07:42
PROVIDERS: ATTEND Obstetrics & Gynecology
DX: Z12.31 Encounter for screening mammogram for malignant neoplasm of breast (principal)
CPT/HCPCS: 77067